=== PATIENT | male | born 1945 | race Caucasian/White ===

== ENCOUNTER 2020-04-09 09:45 | IRF | payer OTHER, SELFPAY ==
--- NOTE | 2020-04-09 10:28 | ADMGEN ---
This patient, Mani Coronel Sr., was admitted to [facility] Room 230-02. Patient/family oriented to hospital policies and general routines including ID bracelet, bed and alarms, visiting hours, pain management, procedures, bathroom and other care routines, personal items, smoking policy, room service/diet, and visiting hours. Valuables list has been completed. Information on how to activate the Rapid Response Team has been discussed. Patient/Family are encouraged to report perceived risks to care and to ask questions if they do not understand what they are told or what they should do.
[2020-04-09 10:44] VITALS: BMI 25.7
[2020-04-09 10:45] VITALS: BP 100/56; PULSE 67; RESP 20; TEMP 36.8; O2SAT 98
--- NOTE | 2020-04-09 11:00 | WPDREHABHP ---
H&P: HPI History of Present Illness Chief complaint: l bka Narrative: Mani Coronel Sr. 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 The patient is a 74-year-old right-handed gentleman who is known to me from his previous hospitalization who has a past medical history of coronary artery disease status post CABG x5 with pacemaker, hypertension, diabetes mellitus type 2 along with peripheral neuropathy, atrial fibrillation on anticoagulation and gastroesophageal reflux disease who underwent a left nbjkx-piw-kuxf amputation on October 19, 2019. He completed inpatient rehab and was discharged home then. His right foot is being followed by Dr. Padron. I he complains of frequent urination 3 to 4 times during the night and every hour during the day. He is a diabetic and his last hemoglobin A1c was 11.3. He was prescribed Flomax at his lost doctor visit to assist with the urinary frequency. His essential hypertension is be treated with Raf inhibitor and is currently controlled but will need to be monitor as a his activity level increases with therapy and added demand and work created by learning to use his prosthetic. The patient is on Xarelto daily for atrial fibrillation and takes low-dose aspirin daily. He has a significant cardiac history and will again noted to be monitored due to the increased demand caused by prosthetic training. His physician reported that the patient is motivated for ambulation and expects the patient to progress with inpatient rehabilitation and prosthetic training. He was ordered a micro compress and knee for increased stability. The patient has peripheral vascular disease with intermittent claudication but the physician does not expect this to affect the walking or use of the prosthesis. The patient has poor vision and is hard of hearing at baseline is a memory deficit that makes inpatient rehabilitation necessity for frequent and daily teaching of the prosthetic use the patient is impulsive and will require cues to not use a start/ stop ambulation pattern. His stump is currently healed but will need to be monitored for skin breakdown given the patient's diabetic status and peripheral vascular disease the patient has not traveled outside the [place] or had contact with someone who is ill that has traveled outside the [place] in the past 21 days. The patient has not traveled to an area within the [place] that is experiencing known transmission of the Coronavirus and has not had close personal contact with anyone that has. The patient does not have a fever. The patient is not experiencing lower respiratory illness symptoms. Therapy was initiated at the acute care facility and the patient transferred to us from Home on April 09, 2020 FALLS OR SURGERIES: The patient has had no major surgeries in the 100 days prior to admission. They had falls in the past year. They had no falls with injury in the past year. PAST MEDICAL HISTORY: atrial fibrillation, coronary artery disease, hyperlipidemia, hypertension, osteoarthritis, degenerative disc disease lumbar region. Dementia of Alzheimer disease, diabetes mellitus with significant peripheral neuropathy and peripheral vascular disease PAST SURGICAL HISTORY: tonsillectomy, cardiac catheterization x3 CABG x5, appendectomy, cholecystectomy, spine surgery, right elbow fracture with hardware, bilateral ankle open reduction and internal fixation, pacemaker placement, left lower extremity angiogram with balloon angioplasty of the left anterior tibial artery. SOCIAL HISTORY: Patient lives with his spouse. Denies use of alcohol or illicit drugs. Patient was chewing tobacco FAMILY HISTORY: probable family history o
[2020-04-09 11:36] LABS: Glucose Point of Care 201 (65-105)
[2020-04-09 14:00] VITALS: BP 100/56; PULSE 67; RESP 20; TEMP 36.8; O2SAT 98
[2020-04-09] MEDS: MORPHINE SULFATE 15 MG TABCR 30 MG PO (17:08)
[2020-04-09] MEDS: BACLOFEN 5 MG TABLET PO (17:09)
[2020-04-09] MEDS: PREGABALIN 50 MG CAPSULE PO (17:09)
[2020-04-09] MEDS: metFORMIN HCL 500 MG TABLET PO (17:09)
[2020-04-09] MEDS: ATORVASTATIN 40 MG TABLET PO (17:10)
[2020-04-09] MEDS: ASPIRIN 81 MG ENTERIC TABLET PO (17:10)
[2020-04-09] MEDS: RIVAROXABAN 15 MG TABLET PO (17:10)
[2020-04-09 20:00] VITALS: PULSE 66; RESP 19; O2SAT 94
[2020-04-09 22:00] VITALS: BP 150/83; PULSE 66; RESP 19; TEMP 36.4; O2SAT 94
[2020-04-09] MEDS: MELATONIN 5 MG TABLET PO (22:20)
[2020-04-09] MEDS: TAMSULOSIN HCL 0.4 MG CAPSULE PO (22:20)
[2020-04-09] MEDS: DONEPEZIL HCL 5 MG TABLET PO (22:20)
[2020-04-10 05:41] LABS: Basophils Absolute Auto 0.1 K/mm3 (0.0-0.1); Basophils Percent Auto 2.2 % (0.2-1.2); Eosinophils Absolute Auto 0.9 K/mm3 (0-0.3); Eosinophils Percent Auto 18.2 % (0-4.4); Hematocrit 30.9 % (42.0-52.0); Hemoglobin 10.2 g/dL (14.0-18.0); Immature Granulocyte Absolute 0.01 K/mm3 (0.00-0.031); Immature Granulocyte Percent A 0.2 % (0-0.5); Lymphocytes Absolute Auto 1.79 K/mm3 (0.9-3.2); Lymphocytes Percent Auto 36.5 % (18.3-44.2); Mean Corpuscular Hemoglobin 29.5 pg (26-34); Mean Corpuscular Volume 89.3 fl (80-100); Mean Platelet Volume 11.5 fl (7.4-10.4); Monocytes Absolute Auto 0.4 K/mm3 (0.1-0.6); Monocytes Percent Auto 7.8 % (2.6-8.5); Neutrophils Absolute Auto 1.7 K/mm3 (1.3-6.7); Neutrophils Percent Auto 35.1 % (45.5-73.1); Platelet Count Result 244 k/mm3 (150-375); Red Blood Count 3.46 M/mm3 (4.6-6.20); Red Cell Distribution Width 13.4 % (11.5-14.5); White Blood Count 4.9 K/mm3 (4.5-10.0)
[2020-04-10 06:00] VITALS: BP 114/72; PULSE 69; RESP 17; TEMP 36.5; O2SAT 100
[2020-04-10] MEDS: MORPHINE SULFATE 15 MG TABCR 30 MG PO ×2 (06:34→17:15)
[2020-04-10 06:56] LABS: Glucose Point of Care 163 (65-105)
[2020-04-10] MEDS: PANTOPRAZOLE 40 MG TABLET PO (09:25)
[2020-04-10] MEDS: NICOTINE (*PBKC) 21 MG PATCH 1 PATCH TRANSDERM (09:25)
[2020-04-10] MEDS: metFORMIN HCL 500 MG TABLET PO ×2 (09:25→17:15)
[2020-04-10] MEDS: MEMANTINE 10 MG TABLET PO (09:26)
[2020-04-10] MEDS: TAMSULOSIN HCL 0.4 MG CAPSULE PO ×2 (09:26→20:09)
[2020-04-10] MEDS: PREGABALIN 50 MG CAPSULE PO ×2 (09:26→17:15)
--- NOTE | 2020-04-10 09:38 | PC.NURSE ---
pt refused to have BMP redrawn this morning. Pt states he only will allow one stick and no more. He states last time someone stuck him 7 times and did not get blood and he won't do that again. updated.
--- NOTE | 2020-04-10 10:25 | RPD ---
INDIVIDUALIZED PLAN OF CARE FOR Mani Coronel . Brief Synthesis of Pre-Admission Screen, Post-Admission Evaluation and Therapy Evaluations: The patient presents to rehab with ischemic gangrene left lower extremity. 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 The patient requires physician services for medical oversight, coordination of care, and pain management. His medical status is subject to change given a sudden dramatic change in activity level. The patient requires nursing services for infection protection, medication management, skin integrity management and care, and patient education. Deficits include:ADLs, Balance, Endurance, Family Training/Education, Mobility, Pain Management, Safety, Strength, Transfers [employer] Developer/Case Management for: Discharge Planning and Patient/Family Counseling Physical Therapy: 5 days per week for 90 minutes. Treatments may include: Therapeutic Exercise, Gait Training, Neuromuscular Re-education, Transfer Training, Community Reintegration, Bed Mobility, Patient/Family Education, Wheelchair Mobility Group Therapy/Concurrent Therapy Rationales: -Improve attention span during functional activities in a distracted environment. -Enhance problem solving and/or adequate judgment skills during functional activities in a distracted environment. -Promote increased safety awareness in a distracted environment to reduce fall risk with functional tasks, transfers, and ambulation to allow a more safe, self-sufficient return to the home environment. -Improve dynamic balance skills to promote safety and independence with functional activities in a distracted environment for maximum gain. Occupational Therapy: 5 days per week for 90 minutes. Treatments may include: Therapeutic Exercise, Therapeutic Activity, Cognitive Training, Self-Care Transfer Training, Community Reintegration, Home Management, Patient/Family Education, Wheelchair Mobility Training, Energy Conservation Training Group Therapy/Concurrent Therapy Rationales: -Allow therapist to observe and teach generalization and carry-over of skills learned in individual therapy. -Enhance problem solving and sequencing skills during therapeutic activities in a distracted environment. -Promote increased safety awareness in a realistic setting to reduce fall risk with functional tasks due to visual and verbal distractions. -Increase functional level with ADLs, ADL transfers and use of adaptive equipment through therapeutic activities with others while promoting safety to allow a more safe, self-sufficient return home. Medical Prognosis: Good Anticipated Length of Stay: 5 days Rehab Goals: Eating Goal: 06-Independent Oral Hygiene Goal: 06-Independent Toileting Hygiene Goal: 06-Independent Shower/Bathe Self Goal: 04-Supervision or Touching Assistance Upper Body Dressing Goal: 06-Independent Lower Body Dressing Goal: 04-Supervision or Touching Assistance Putting On/Taking Off Footwear Goal: 06-Independent Rolling Left and Right Goal: 06-Independent Sit to Lying Goal: 06-Independent Lying to Sitting on Side of Bed Goal: 06-Independent Sit to Stand Goal: 06-Independent Chair/Ojj-uy-Ichie Transfer Goal: 06-Independent Toilet Transfer Goal: 06-Independent Car Transfer Goal: 04-Supervision or Touching Assistance Walk 10' Goal: 04-Supervision or Touching Assistance Walk 50' with Two Turns Goal: 04-Supervision or Touching Assistance Walk 150' Goal: 04-Supervision or Touching Assistance Walk 10' on Uneven Surface Goal: 04-Supervision or Touching Assistance 1 Step (Curb) Goal: 03-Partial/Moderate Assistance 4 Steps Goal: 03-Partial/Moderate Assistance
[2020-04-10 14:00] VITALS: BP 120/64; PULSE 61; RESP 18; TEMP 36.5; O2SAT 96
[2020-04-10 16:45] LABS: Glucose Point of Care 150 (65-105)
[2020-04-10] MEDS: RIVAROXABAN 15 MG TABLET PO (17:15)
[2020-04-10] MEDS: ATORVASTATIN 40 MG TABLET PO (17:15)
[2020-04-10] MEDS: ASPIRIN 81 MG ENTERIC TABLET PO (17:15)
[2020-04-10] MEDS: BACLOFEN 5 MG TABLET PO (17:16)
[2020-04-10 20:00] VITALS: PULSE 65; RESP 18; O2SAT 97
[2020-04-10] MEDS: MELATONIN 5 MG TABLET PO (20:09)
[2020-04-10] MEDS: DONEPEZIL HCL 5 MG TABLET PO (20:09)
[2020-04-10 20:21] VITALS: BP 91/49; PULSE 97; RESP 18; TEMP 36.6; O2SAT 97
[2020-04-10 22:00] VITALS: BP 91/49; PULSE 65; RESP 18; TEMP 36.6; O2SAT 97
[2020-04-11 06:00] VITALS: BP 106/54; PULSE 64; RESP 16; TEMP 36.7; O2SAT 100
[2020-04-11 06:55] LABS: Glucose Point of Care 171 (65-105)
[2020-04-11] MEDS: MORPHINE SULFATE 15 MG TABCR 30 MG PO ×2 (06:58→17:31)
--- NOTE | 2020-04-11 08:54 | PCPTNOTE ---
Mani Coronel Sr. was evaluated for a wheeled walker on 04/11/2020 by this physical therapist. The wheeled walker will resolve patient's mobility limitations and will be used for ADL's within the home. The patient can safely use the wheeled walker. ?The wheeled walker will resolve the patient?s mobility deficits, including transfers, gait in home and ADL's. Odalis Elizabeth PT
[2020-04-11] MEDS: NICOTINE (*PBKC) 21 MG PATCH 1 PATCH TRANSDERM (09:34)
[2020-04-11] MEDS: MEMANTINE 10 MG TABLET PO (09:35)
[2020-04-11] MEDS: metFORMIN HCL 500 MG TABLET PO ×2 (09:35→17:31)
[2020-04-11] MEDS: PANTOPRAZOLE 40 MG TABLET PO (09:35)
[2020-04-11] MEDS: PREGABALIN 50 MG CAPSULE PO ×2 (09:35→17:31)
[2020-04-11] MEDS: TAMSULOSIN HCL 0.4 MG CAPSULE PO ×2 (09:37→20:56)
[2020-04-11] MEDS: TOBRAMYCIN 0.3% OPHTH SOLN 5 ML 1 DROP EACH EYE ×3 (12:22→20:51)
[2020-04-11 13:08] VITALS: BMI 25.7
[2020-04-11] MEDS: BACLOFEN 5 MG TABLET PO ×2 (13:40→20:56)
[2020-04-11 14:00] VITALS: BP 101/60; PULSE 66; RESP 18; TEMP 36.8; O2SAT 95
--- NOTE | 2020-04-11 14:34 | WPDNEURORHBP ---
Subjective Date/time seen: 04/11/20 14:34 Interval history: this 74-year-old gentleman is here for the prosthetic training along with the other medical conditions his complaining of back pain which she for which he was seeing the Pain Management in the past however quite reluctant to increase his morphine which is taking at this 0.30 every 12 hours he denies any chest pain shortness of breath fever chills sore throat he has had chronic issues with his eyes related diabetes mellitus and wanted some eyedrops for the same including the drops for the dry eye which I have initiated Review of Systems Review of Systems: All systems reviewed & are unremarkable except as noted in HPI and below Functional Status Ambulation Ability Ability to Ambulate 10 Feet: Standby Assistance Ability to Ambulate 50 Feet With 2 Turns: Standby Assistance Ability to Ambulate 150 Feet: Standby Assistance Ambulation Assistive Devices: Walker, Wheeled Transfers Ability Ability to Transfer In/Out of Chair: Standby Assistance Exam Const: General: comfortable and no acute distress HENMT: General nose exam: Normal nares present Mouth: Yes moist mucous membranes Eyes: Other: a dry eyes and blepharitis along with decreased vision related to the diabetes me Neck: Neck: supple and no JVD Resp: Effort & Inspection: normal respiratory effort Auscultation: clear to auscultation bilaterally Cardio: Rate: regular rate Rhythm: regular rhythm GI: GI Palp: Yes Soft to palpation Auscultation: normal bowel sounds Skin: General skin exam: normal color and no rashes or lesions noted Neuro: Other: patient is awake and alert wound time place and person with cognitive and memory deficit is stable along with the evidence of peripheral neuropathy and probably peripheral vascular disease also Extrem: Other: the stump from the BKA is stable and the prosthesis is well fitting Psych: Other: mild dementia Objective Data Vital Signs Vital Signs: Vital Signs - 24 hr 04/10/20 20:00 04/10/20 20:21 04/10/20 22:00 Temperature 36.6 C 36.6 C Pulse Rate 65 97 65 Respiratory Rate 18 18 18 Blood Pressure 91/49 L 91/49 L Pulse Oximetry 97 97 97 04/11/20 06:00 Temperature 36.7 C Pulse Rate 64 Respiratory Rate 16 Blood Pressure 106/54 L Pulse Oximetry 100 Intake/Output Intake/Output: Intake & Output 04/08/20 04/09/20 04/10/2004/11/20 23:59 23:59 23:59 23:59 Intake Total 480 720 240 Balance 480 720 240 Meds/Results Medications: Active Medications Generic Name Dose Route Start Last Admin Trade Name Freq PRN Reason Stop Dose Admin Aspirin 81 mg 04/09/20 18:00 04/10/20 17:15 Aspirin Ec PO 81 mg QPM YRIS Administration Atorvastatin Calcium 40 mg 04/09/20 18:00 04/10/20 17:15 Lipitor PO 40 mg QPM YRIS Administration Baclofen 5 mg 04/11/20 14:00 04/11/20 13:40 Lioresal Po PO 5 mg Q8HR YRIS Administration Cyclosporine 1 drop 04/11/20 09:00 04/11/20 12:22 Restasis EACH EYE 1 drop Q12HR YRIS Administration Diphenhydramine HCl 25 mg 04/09/20 12:09 04/10/20 20:21 Benadryl Cap PO 25 mg Q6H PRN Administration Itching Donepezil HCl 5 mg 04/09/20 21:00 04/10/20 20:09 Aricept PO 5 mg HS YRIS Administration Melatonin 5 mg 04/09/20 21:00 04/10/20 20:09 Melatonin PO 5 mg HS YRIS Administration Memantine 10 mg 04/10/20 09:00 04/11/20 09:35 Namenda PO 10 mg QAM YRIS Administration Metformin HCl 500 mg 04/09/20 17:00 04/11/20 09:35 Glucophage PO 500 mg BID YRIS Administration Morphine Sulfate 30 mg 04/09/20 18:00 04/11/20 06:58 Ms Contin PO 30 mg Q12H YRIS Administration Nicotine 1 patch 04/10/20 09:00 04/11/20 09:34 Nicoderm Cq 21 Mg TRANSDERM 1 patch QAM YRIS Administration Nitroglycerin 0.4 mg 04/09/20 12:09 Nitrostat Subl 0.4 Mg (1/150) SUBLINGUAL Q5MIN PRN Chest Pain Pantoprazole Sodium 40 mg 04/10/20 09:00
[2020-04-11 16:52] LABS: Glucose Point of Care 125 (65-105)
[2020-04-11] MEDS: ASPIRIN 81 MG ENTERIC TABLET PO (17:31)
[2020-04-11] MEDS: RIVAROXABAN 15 MG TABLET PO (17:31)
[2020-04-11] MEDS: ATORVASTATIN 40 MG TABLET PO (17:31)
[2020-04-11 20:00] VITALS: PULSE 67; RESP 18; O2SAT 99
[2020-04-11] MEDS: DONEPEZIL HCL 5 MG TABLET PO (20:56)
[2020-04-11] MEDS: MELATONIN 5 MG TABLET PO (20:56)
[2020-04-11 22:00] VITALS: BP 132/66; PULSE 67; RESP 18; TEMP 36.3; O2SAT 99
[2020-04-12] MEDS: TOBRAMYCIN 0.3% OPHTH SOLN 5 ML 1 DROP EACH EYE ×5 (05:29→21:09)
[2020-04-12] MEDS: BACLOFEN 5 MG TABLET PO ×3 (05:29→21:09)
[2020-04-12] MEDS: MORPHINE SULFATE 15 MG TABCR 30 MG PO ×2 (05:31→17:24)
[2020-04-12 06:00] VITALS: BP 109/56; PULSE 73; RESP 18; TEMP 36.5; O2SAT 98
[2020-04-12 07:34] LABS: Glucose Point of Care 140 (65-105)
[2020-04-12] MEDS: TAMSULOSIN HCL 0.4 MG CAPSULE PO ×2 (09:22→21:09)
[2020-04-12] MEDS: NICOTINE (*PBKC) 21 MG PATCH 1 PATCH TRANSDERM (09:22)
[2020-04-12] MEDS: metFORMIN HCL 500 MG TABLET PO ×2 (09:22→17:25)
[2020-04-12] MEDS: PREGABALIN 50 MG CAPSULE PO ×2 (09:22→17:25)
[2020-04-12] MEDS: PANTOPRAZOLE 40 MG TABLET PO (09:22)
[2020-04-12] MEDS: MEMANTINE 10 MG TABLET PO (09:22)
[2020-04-12 14:00] VITALS: BP 100/50; PULSE 77; RESP 20; TEMP 36.6; O2SAT 96
[2020-04-12] MEDS: ATORVASTATIN 40 MG TABLET PO (17:25)
[2020-04-12] MEDS: ASPIRIN 81 MG ENTERIC TABLET PO (17:25)
--- NOTE | 2020-04-12 17:48 | WPDNEURORHBP ---
Subjective Date/time seen: 04/12/20 17:48 Interval history: this 74-year-old the diabetic male is here for the prosthetic training after having had a left rkjcu-dyu-gsgb amputation last night he was complaining of some shortness of breath related to underlying emphysema but today's perfectly fine denies any chest pain shortness of breath fever chills or sore throat periodically has used in the past some inhaler so I have asked the nurses to go ahead and put him on albuterol inhaler as needed basis overall he is improving and doing very well in the prosthetic training Review of Systems Review of Systems: All systems reviewed & are unremarkable except as noted in HPI and below Functional Status Ambulation Ability Ability to Ambulate 10 Feet: Contact Guard Ability to Ambulate 50 Feet With 2 Turns: Contact Guard Ability to Ambulate 150 Feet: Contact Guard Ambulation Assistive Devices: Walker, Wheeled Transfers Ability Ability to Transfer In/Out of Chair: Moderate Assistance X 1 Exam Const: General: comfortable and no acute distress HENMT: General nose exam: Normal nares present Mouth: Yes moist mucous membranes Eyes: Other: evidence of chronic blepharitis and also evidence of diabetic retinopathy with decreased vision which is stable as before Neck: Neck: supple and no JVD Resp: Effort & Inspection: normal respiratory effort Auscultation: clear to auscultation bilaterally Cardio: Rate: regular rate GI: GI Palp: Yes Soft to palpation Auscultation: normal bowel sounds Skin: General skin exam: normal color and no rashes or lesions noted Neuro: Other: the patient is awake and alert oriented x3 does have underlying cognitive dysfunction evidence of peripheral neuropathy able to engage in therapy quite well Extrem: Other: the stump from the left BKA is clean and the prosthesis is working fairly well Psych: Other: evidence of mild cognitive deficit stable Objective Data Vital Signs Vital Signs: Vital Signs - 24 hr 04/11/20 20:00 04/11/20 22:00 04/12/20 06:00 Temperature 36.3 C L 36.5 C Pulse Rate 67 67 73 Respiratory Rate 18 18 18 Blood Pressure 132/66 109/56 L Pulse Oximetry 99 99 98 04/12/20 14:00 Temperature 36.6 C Pulse Rate 77 Respiratory Rate 20 Blood Pressure 100/50 L Pulse Oximetry 96 Intake/Output Intake/Output: Intake & Output 04/09/20 04/10/20 04/11/2004/12/20 23:59 23:59 23:59 23:59 Intake Total 480 720 840 960 Balance 480 720 840 960 Meds/Results Medications: Active Medications Generic Name Dose Route Start Last Admin Trade Name Freq PRN Reason Stop Dose Admin Albuterol 2 puff 04/12/20 14:25 Proventil Hfa INHALATION QIDRT PRN Shortness Of Breath Aspirin 81 mg 04/09/20 18:00 04/12/20 17:25 Aspirin Ec PO 81 mg QPM YRIS Administration Atorvastatin Calcium 40 mg 04/09/20 18:00 04/12/20 17:25 Lipitor PO 40 mg QPM YRIS Administration Baclofen 5 mg 04/11/20 14:00 04/12/20 13:26 Lioresal Po PO 5 mg Q8HR YRIS Administration Cyclosporine 1 drop 04/11/20 09:00 04/12/20 09:21 Restasis EACH EYE 1 drop Q12HR YRIS Administration Diphenhydramine HCl 25 mg 04/09/20 12:09 04/11/20 21:03 Benadryl Cap PO 25 mg Q6H PRN Administration Itching Donepezil HCl 5 mg 04/09/20 21:00 04/11/20 20:56 Aricept PO 5 mg HS YRIS Administration Melatonin 5 mg 04/09/20 21:00 04/11/20 20:56 Melatonin PO 5 mg HS YRIS Administration Memantine 10 mg 04/10/20 09:00 04/12/20 09:22 Namenda PO 10 mg QAM YRIS Administration Metformin HCl 500 mg 04/09/20 17:00 04/12/20 17:25 Glucophage PO 500 mg BID YRIS Administration Morphine Sulfate 30 mg 04/09/20 18:00 04/12/20 17:24 Ms Contin PO 30 mg Q12H YRIS Administration Nicotine 1 patch 04/10/20 09:00 04/12/20 09:22 Nicoderm Cq 21 Mg TRANSDERM 1 patch QAM YRIS Administration Nitroglycerin 0.4 mg 04/09/20 12:09 Nitrost
--- NOTE | 2020-04-12 18:29 | PC.NURSE ---
pt refused 5 pm accucheck stating his fingers were sore and he didn't want stuck. updated.
[2020-04-12] MEDS: DONEPEZIL HCL 5 MG TABLET PO (21:09)
[2020-04-12] MEDS: MELATONIN 5 MG TABLET PO (21:09)
[2020-04-12] MEDS: RIVAROXABAN 15 MG TABLET PO (21:09)
[2020-04-12 22:00] VITALS: BP 86/45; PULSE 101; RESP 18; TEMP 36.7; O2SAT 95
[2020-04-13] MEDS: TOBRAMYCIN 0.3% OPHTH SOLN 5 ML 1 DROP EACH EYE ×5 (05:44→21:30)
[2020-04-13] MEDS: MORPHINE SULFATE 15 MG TABCR 30 MG PO ×2 (05:44→17:35)
[2020-04-13] MEDS: BACLOFEN 5 MG TABLET PO ×3 (05:45→21:30)
[2020-04-13 06:00] VITALS: BP 110/60; PULSE 68; RESP 18; TEMP 36.5; O2SAT 96
[2020-04-13 07:02] LABS: Glucose Point of Care 154 (65-105)
[2020-04-13] MEDS: MEMANTINE 10 MG TABLET PO (10:25)
[2020-04-13] MEDS: metFORMIN HCL 500 MG TABLET PO ×2 (10:25→17:34)
[2020-04-13] MEDS: NICOTINE (*PBKC) 21 MG PATCH 1 PATCH TRANSDERM (10:26)
[2020-04-13] MEDS: PANTOPRAZOLE 40 MG TABLET PO (10:26)
[2020-04-13] MEDS: TAMSULOSIN HCL 0.4 MG CAPSULE PO ×2 (10:27→21:30)
[2020-04-13] MEDS: PREGABALIN 50 MG CAPSULE PO ×2 (10:28→17:34)
[2020-04-13 14:00] VITALS: BP 96/45; PULSE 67; RESP 20; TEMP 35.9; O2SAT 96
--- NOTE | 2020-04-13 16:13 | WPDNEURORHBP ---
Subjective Date/time seen: 04/13/20 16:13 Interval history: this 74-year-old gentleman diabetic has finished the training for the prosthesis and will be going home tomorrow he does not have any new symptoms he says he is most of the medication except he wishes to have the morphine the baclofen the eyedrops and if anything I have started him on during this hospitalization I will look into it he denies any headache nausea vomiting chest pain shortness of breath fever chills sore throat Review of Systems Review of Systems: All systems reviewed & are unremarkable except as noted in HPI and below Functional Status Ambulation Ability Ability to Ambulate 10 Feet: Standby Assistance Ability to Ambulate 50 Feet With 2 Turns: Standby Assistance Ability to Ambulate 150 Feet: Standby Assistance Ambulation Assistive Devices: Walker, Wheeled Transfers Ability Ability to Transfer In/Out of Chair: Moderate Assistance X 1 Exam Const: General: comfortable and no acute distress HENMT: General nose exam: Normal nares present Mouth: Yes moist mucous membranes Eyes: General: appearance normal, both eyes and all related structures Other: decreased visual acuity bilaterally related to diabetic retinopathy Neck: Neck: supple and no JVD Resp: Effort & Inspection: normal respiratory effort Auscultation: clear to auscultation bilaterally Cardio: Rate: regular rate Rhythm: regular rhythm GI: GI Palp: Yes Soft to palpation Auscultation: normal bowel sounds Skin: General skin exam: normal color and no rashes or lesions noted Neuro: Other: the mild dementia is remains stable speech is fluent decreased visual acuity remains stable peripheral neuropathy is stable he is able to uses prosthesis quite well and will repeated to discharged tomorrow Extrem: Other: the prosthesis seems to be fitting well and the stump from the left lfnco-tms-abjj amputation is healthy Psych: Other: mild dementia Objective Data Vital Signs Vital Signs: Vital Signs - 24 hr 04/12/20 22:00 04/13/20 06:00 04/13/20 14:00 Temperature 36.7 C 36.5 C 35.9 C L Pulse Rate 101 H 68 67 Respiratory Rate 18 18 20 Blood Pressure 86/45 L 110/60 96/45 L Pulse Oximetry 95 96 96 Intake/Output Intake/Output: Intake & Output 04/10/20 04/11/20 04/12/20 04/13/20 23:59 23:59 23:59 23:59 Intake Total 121 677 4654 960 Balance 271 001 5423 960 Meds/Results Medications: Active Medications Generic Name Dose Route Start Last Admin Trade Name Freq PRN Reason Stop Dose Admin Albuterol 2 puff 04/12/20 14:25 Proventil Hfa INHALATION QIDRT PRN Shortness Of Breath Aspirin 81 mg 04/09/20 18:00 04/12/20 17:25 Aspirin Ec PO 81 mg QPM YRIS Administration Atorvastatin Calcium 40 mg 04/09/20 18:00 04/12/20 17:25 Lipitor PO 40 mg QPM YRIS Administration Baclofen 5 mg 04/11/20 14:00 04/13/20 13:55 Lioresal Po PO 5 mg Q8HR YRIS Administration Cyclosporine 1 drop 04/11/20 09:00 04/13/20 10:25 Restasis EACH EYE 1 drop Q12HR YRIS Administration Diphenhydramine HCl 25 mg 04/09/20 12:09 04/11/20 21:03 Benadryl Cap PO 25 mg Q6H PRN Administration Itching Donepezil HCl 5 mg 04/09/20 21:00 04/12/20 21:09 Aricept PO 5 mg HS RYIS Administration Melatonin 5 mg 04/09/20 21:00 04/12/20 21:09 Melatonin PO 5 mg HS YRIS Administration Memantine 10 mg 04/10/20 09:00 04/13/20 10:25 Namenda PO 10 mg QAM YRIS Administration Metformin HCl 500 mg 04/09/20 17:00 04/13/20 10:25 Glucophage PO 500 mg BID YRIS Administration Morphine Sulfate 30 mg 04/09/20 18:00 04/13/20 05:44 Ms Contin PO 30 mg Q12H YRIS Administration Nicotine 1 patch 04/10/20 09:00 04/13/20 10:26 Nicoderm Cq 21 Mg TRANSDERM 1 patch QAM YRIS Administration Nitroglycerin 0.4 mg 04/09/20 12:09 Nitrostat Subl 0.4 Mg (1/150) SUBLINGUAL Q5MIN PRN Chest Pain Pantoprazole Sodium 4
[2020-04-13 17:31] LABS: Glucose Point of Care 176 (65-105)
[2020-04-13] MEDS: ASPIRIN 81 MG ENTERIC TABLET PO (17:34)
[2020-04-13] MEDS: ATORVASTATIN 40 MG TABLET PO (17:34)
[2020-04-13] MEDS: RIVAROXABAN 15 MG TABLET PO (17:35)
[2020-04-13] MEDS: ALBUTEROL SULFATE (*SP) AEROSOL 1 PUFF 2 PUFF INHALATION (19:46)
[2020-04-13] MEDS: DONEPEZIL HCL 5 MG TABLET PO (21:30)
[2020-04-13] MEDS: MELATONIN 5 MG TABLET PO (21:30)
[2020-04-13 22:00] VITALS: BP 89/41; PULSE 60; RESP 16; TEMP 36.3; O2SAT 95
[2020-04-14 06:00] VITALS: BP 97/54; PULSE 60; RESP 18; TEMP 36.1; O2SAT 94
[2020-04-14] MEDS: MORPHINE SULFATE 15 MG TABCR 30 MG PO (06:13)
[2020-04-14] MEDS: TOBRAMYCIN 0.3% OPHTH SOLN 5 ML 1 DROP EACH EYE ×2 (06:13→09:17)
[2020-04-14] MEDS: BACLOFEN 5 MG TABLET PO (06:13)
[2020-04-14 06:29] LABS: Glucose Point of Care 123 (65-105)
[2020-04-14] MEDS: NICOTINE (*PBKC) 21 MG PATCH 1 PATCH TRANSDERM (09:16)
[2020-04-14] MEDS: metFORMIN HCL 500 MG TABLET PO (09:17)
[2020-04-14] MEDS: MEMANTINE 10 MG TABLET PO (09:17)
[2020-04-14] MEDS: PREGABALIN 50 MG CAPSULE PO (09:17)
[2020-04-14] MEDS: TAMSULOSIN HCL 0.4 MG CAPSULE PO (09:17)
[2020-04-14] MEDS: PANTOPRAZOLE 40 MG TABLET PO (09:17)
--- NOTE | 2020-04-16 15:17 | PM.DS ---
DS: Admitting Diagnosis Admitting Diagnosis Admitting Diagnosis: Type 2 diabetes mellitus with diabetic peripheral angiopathy with gangrene DS: Discharge Diagnosis Discharge Diagnosis (1) Encounter for prosthetic gait training: Code(s): Z47.89 - Encounter for other orthopedic aftercare Status: Acute (2) CKD (chronic kidney disease) stage 3, GFR 30-59 ml/min: Code(s): N18.3 - Chronic kidney disease, stage 3 (moderate) Status: Acute (3) Dementia: Code(s): F03.90 - Unspecified dementia without behavioral disturbance Status: Acute (4) Diabetic nephropathy: Code(s): E11.21 - Type 2 diabetes mellitus with diabetic nephropathy Status: Acute (5) Diabetic retinopathy: Code(s): E11.319 - Type 2 diabetes mellitus with unspecified diabetic retinopathy without macular edema Status: Acute (6) Phantom pain: Code(s): G54.6 - Phantom limb syndrome with pain Status: Acute (7) Below-knee amputation of left lower extremity: Code(s): S88.112A - Complete traumatic amputation at level between knee and ankle, left lower leg, initial encounter Status: Acute (8) Diabetes mellitus: Code(s): E11.9 - Type 2 diabetes mellitus without complications Status: Acute (9) Peripheral vascular disease: Code(s): I73.9 - Peripheral vascular disease, unspecified Status: Acute (10) Hypertension: Code(s): I10 - Essential (primary) hypertension Status: Chronic (11) S/P CABG x 5: Code(s): Z95.1 - Presence of aortocoronary bypass graft Status: Acute (12) Atrial fibrillation: Code(s): I48.91 - Unspecified atrial fibrillation Status: Acute (13) Ischemia of left BKA site: Code(s): T87.89 - Other complications of amputation stump; I99.8 - Other disorder of circulatory system Status: Acute DS: Summary Hospital Course Reason for hospitalization: this patient with the left [id number] amputation was admitted for the prosthetic training with the above other medical comorbidities he did receive the therapies the medical management of his underlying condition and was to be discharged with home with home health to follow Hospital Course: the hospital course improved his functional independent measures to following Eating independent oral hygiene setup, toileting setup, bathing supervision, upper body dressing independent, lower body dressing supervision, foot where supervision, rolling in bed independent sitting to lying independent lying to sitting independently sit to stand supervision chair transfers supervision toilet transfer supervision car transfer supervision walking 10 feet supervision walking 50 feet 2 turns supervision walking 150 feet supervision walking 10 feet uneven surfaces supervision carb are step partial assistance 4 steps partial assistance 12 steps partial patient was unable to picking up objects supervision wheelchair 50 feet independent and wheelchair and 50 feet independent Status at Discharge Cognitive/behavioral status at discharge: underlying dementia stable Time Spent with Patient Time attestation: Total time spent providing and/or coordinating discharge services: Exam Const: General: comfortable and no acute distress HENMT: General nose exam: Normal nares present Mouth: Yes dry mucous membranes Eyes: Other: evidence of a diabetic retinopathy Neck: Neck: supple and no JVD Resp: Effort & Inspection: normal respiratory effort Auscultation: clear to auscultation bilaterally Cardio: Rate: regular rate Rhythm: regular rhythm GI: GI Palp: Yes Soft to palpation Auscultation: normal bowel sounds Neuro: Other: patient's neurological and physical status improved and he was doing fairly well using the prosthesis his peripheral neuropathy and peripheral vascular disease remained stable Extrem: Other: the left [id number] amputation site stump is clean Psych: Appearance: kimmie
== END 2020-04-14 11:30 | disposition home health service (06) | DRG 560 ==
PROVIDERS: Admitting Provider Psychiatry & Neurology Neurology; PCP Family Medicine; Visit Provider Psychiatry & Neurology Neurology
DX: Z47.81 Encounter for orthopedic aftercare following surgical amputation (principal); I13.0 Hypertensive heart and chronic kidney disease with heart failure and stage 1 through stage 4 chronic kidney disease, or unspecified chronic kidney disease; I50.30 Unspecified diastolic (congestive) heart failure; E11.51 Type 2 diabetes mellitus with diabetic peripheral angiopathy without gangrene; E11.42 Type 2 diabetes mellitus with diabetic polyneuropathy; E11.319 Type 2 diabetes mellitus with unspecified diabetic retinopathy without macular edema; E11.21 Type 2 diabetes mellitus with diabetic nephropathy; E11.22 Type 2 diabetes mellitus with diabetic chronic kidney disease; E78.5 Hyperlipidemia, unspecified; F02.80 Dementia in other diseases classified elsewhere, unspecified severity, without behavioral disturbance, psychotic disturbance, mood disturbance, and anxiety; H91.90 Unspecified hearing loss, unspecified ear; I12.9 Hypertensive chronic kidney disease with stage 1 through stage 4 chronic kidney disease, or unspecified chronic kidney disease; I25.10 Atherosclerotic heart disease of native coronary artery without angina pectoris; I48.91 Unspecified atrial fibrillation; K21.9 Gastro-esophageal reflux disease without esophagitis; N18.3 Chronic kidney disease, stage 3 (moderate); R35.0 Frequency of micturition; T87.89 Other complications of amputation stump; Z98.890 Other specified postprocedural states; Z95.0 Presence of cardiac pacemaker; Z95.1 Presence of aortocoronary bypass graft; Z79.01 Long term (current) use of anticoagulants; Z79.82 Long term (current) use of aspirin; Z79.84 Long term (current) use of oral hypoglycemic drugs; Z89.512 Acquired absence of left leg below knee
CPT/HCPCS: 36415; 85025; 94640; 97110; 97116; 97161; 97165; 97530; 97535; 97761; A9270

== ENCOUNTER 2020-08-18 12:13 | Outpatient (CLI) | payer OTHER, SELFPAY ==
[2020-08-18 13:25] LABS: Basophils Absolute Auto 0.2 K/mm3 (0.0-0.1); Basophils Percent Auto 2.4 % (0.2-1.2); Eosinophils Absolute Auto 0.4 K/mm3 (0-0.3); Eosinophils Percent Auto 5.5 % (0-4.4); Hematocrit 31.5 % (42.0-52.0); Immature Granulocyte Absolute 0.01 K/mm3 (0.00-0.031); Immature Granulocyte Percent A 0.2 % (0-0.5); Lymphocytes Absolute Auto 1.68 K/mm3 (0.9-3.2); Lymphocytes Percent Auto 26.3 % (18.3-44.2); Mean Corpuscular HGB Conc 31.7 g/dl (32-36); Mean Corpuscular Hemoglobin 29.5 pg (26-34); Mean Corpuscular Volume 92.9 fl (80-100); Mean Platelet Volume 11.6 fl (7.4-10.4); Monocytes Absolute Auto 0.5 K/mm3 (0.1-0.6); Monocytes Percent Auto 7.7 % (2.6-8.5); Neutrophils Absolute Auto 3.7 K/mm3 (1.3-6.7); Neutrophils Percent Auto 57.9 % (45.5-73.1); Platelet Count Result 251 k/mm3 (150-375); Red Blood Count 3.39 M/mm3 (4.6-6.20); Red Cell Distribution Width 14.4 % (11.5-14.5); White Blood Count 6.4 K/mm3 (4.5-10.0)
[2020-08-18 13:32] LABS: Hemoglobin A1C 8.2 % (<5.7)
[2020-08-18 13:37] LABS: Alanine Aminotransferase 16 U/L (4-50); Albumin Level 3.6 g/dL (3.5-5.1); Alkaline Phosphatase 115 U/L (38-126); Anion Gap 8 mmol/L (8-16); Aspartate Amino Transferase 25 U/L (17-59); Bilirubin,Total 0.7 mg/dL (0.2-1.3); Blood Urea Nitrogen 22 mg/dL (9-20); Calcium 8.9 mg/dL (8.4-10.2); Carbon Dioxide 26 mmol/L (22-30); Chloride 104 mmol/L (98-107); Cholesterol 124 mg/dL (0-200); Estimated Glomerular Filt Rate 35; Glucose 105 mg/dL (75-110); HDL Direct 52 mg/dL; Potassium 4.3 mmol/L (3.4-5.0); Sodium 138 mmol/L (137-145); Triglycerides 93 mg/dL (<150)
[2020-08-18 13:48] LABS: LDL Cholesterol Direct 49 mg/dL
== END 2020-08-18 12:14 | disposition home or self-care (01) ==
LOC: ANHLAB 12:20
PROVIDERS: PCP Family Medicine; Visit Provider Family Medicine
DX: E11.59 Type 2 diabetes mellitus with other circulatory complications (principal); I10 Essential (primary) hypertension
CPT/HCPCS: 36415; 80053; 80061; 83036; 85025

== ENCOUNTER 2020-08-18 15:04 | Observation (INO) | payer OTHER, SELFPAY ==
[2020-08-18] VITALS (43 sets, daily range): BP systolic 71–126; BP diastolic 7–106; PULSE 63–94; RESP 10–24; TEMP 36.2–37; O2SAT 90–98; BMI 24.5
--- NOTE | ~2020-08-18 | CT_ITS ---
EXAMINATION: CT brain wo con INDICATION: Altered mental status COMPARISON: 11/03/2019 TECHNIQUE: Standard unenhanced head CT. The dose-length product (DLP) was 605.33 mGy-cm. The mA was a djusted according to patient size. Iterative reconstruction technique was employed. FINDINGS: There is no acute intraparenchymal hemorrhage. No evidence of mass lesion. No evidence of a cute infarction. An old right frontal lobe infarct is noted. There is moderate periventricular and hankins bcortical hypodensity probably related to small vessel ischemic disease. There is moderate prominence of the sulci and ventricles related to cerebral atrophy. Intracranial calcified cerebral atheroscler osis is noted. There are no extra-axial collections. There is no mass effect or midline shift. The or bits and soft tissues are unremarkable. There is mild mucosal thickening of the paranasal sinuses. T here is a left mastoid effusion. IMPRESSION: 1. No acute intracranial abnormality. 2. Age related findings. Reviewed, dictated and finalized at location A.
--- NOTE | ~2020-08-18 | US_ITS ---
EXAMINATION: US carotid duplex BI DATE: 08/19/2020 08:02 INDICATION: Right frontal lobe infarct. TECHNIQUE: Grayscale, color Doppler, and pulsed Doppler images of the cervical carotid arteries were obtained. The degree of vessel stenosis is placed in one of the following categories: normal, <50%, 5 0-69%, >=70% but less than near-occlusion, near-occlusion, or total occlusion. Note that percent sten osis relative to normal distal artery lumen diameter is indirectly measured from velocity measurement s as described by Freddie, et al. Radiology 2003; 229:340-346. COMPARISON: None. FINDINGS: There is an arrhythmia. RIGHT: The right common carotid artery (CCA) peak systolic velocity (PSV) is 56 cm/s. The right internal car otid artery (ICA) PSV is 52 cm/s. The right ICA end-diastolic velocity (EDV) is 12 cm/s. The right IC A/CCA PSV ratio is 0.9. Grayscale and color Doppler images yield an estimate of <50% diameter reducti on from plaque in the ICA. There is antegrade flow in the right vertebral artery. LEFT: The left CCA PSV is 79 cm/s. The left ICA PSV is 53 cm/s. The left ICA EDV is 12 cm/s. The left ICA/C CA PSV ratio is 0.7. Grayscale and color Doppler images yield an estimate of <50% diameter reduction from plaque in the ICA. There is antegrade flow in the left vertebral artery. IMPRESSION: 1. <50% stenosis in the right internal carotid artery. 2. <50% stenosis in the left internal carotid artery. 3. Arrhythmia. Reviewed, dictated and finalized at location A.
--- NOTE | ~2020-08-18 | XR_ITS ---
EXAMINATION: XR chest 1V portable INDICATION: Transient alteration of awareness TECHNIQUE: Portable AP chest at 1919 hours COMPARISON: 12/05/2019 FINDINGS: The lungs are free of acute opacities. There is no pleural effusion or pneumothorax. The he art size is normal. Median sternotomy wires and mediastinal surgical clips are seen, likely from prio r coronary artery bypass grafting. A dual-lead cardiac pacemaker of the left chest wall ends with amor ds in expected locations. There is mild chronic elevation of the right hemidiaphragm. Old right-sided rib fractures are noted. IMPRESSION: 1. No acute cardiopulmonary abnormality. Reviewed, dictated and finalized at location A.
--- NOTE | 2020-08-18 15:28 | ECG_ITS ---
Measurements Intervals [place] Rate: 85 P: 50 WV: 175 QRS: -59 QRSD: 162 T: 16 QT: 413 QTc: 493 Interpretive Statements SINUS RHYTHM FREQUENT ATRIAL PREMATURE COMPLEXES RIGHT BUNDLE BRANCH BLOCK LEFT ANTERIOR FASCICULAR BLOCK BASELINE ARTIFACT- I, II, III, AVR, AVL, AVF, V1-V6 ABNORMAL ECG Electronically Signed On 08-18-2020 15:55:11 CDT by Yohan Kumari D.O.
--- NOTE | 2020-08-18 15:39 | PC.NURSE ---
PT PLACED IN TRIAGE BAY 2 W/ UNTIL ROOM CAN BE ASSIGNED.
[2020-08-18 15:46] LABS: Basophils Absolute Auto 0.1 K/mm3 (0.0-0.1); Basophils Percent Auto 2.4 % (0.2-1.2); Eosinophils Absolute Auto 0.3 K/mm3 (0-0.3); Eosinophils Percent Auto 5.9 % (0-4.4); Hematocrit 31.6 % (42.0-52.0); Hemoglobin 10.2 g/dL (14.0-18.0); Immature Granulocyte Absolute 0.01 K/mm3 (0.00-0.031); Immature Granulocyte Percent A 0.2 % (0-0.5); Lymphocytes Absolute Auto 1.77 K/mm3 (0.9-3.2); Lymphocytes Percent Auto 30.9 % (18.3-44.2); Mean Corpuscular HGB Conc 32.3 g/dl (32-36); Mean Corpuscular Hemoglobin 30.2 pg (26-34); Mean Corpuscular Volume 93.5 fl (80-100); Mean Platelet Volume 11.6 fl (7.4-10.4); Monocytes Absolute Auto 0.4 K/mm3 (0.1-0.6); Monocytes Percent Auto 7.7 % (2.6-8.5); Neutrophils Percent Auto 52.9 % (45.5-73.1); Platelet Count Result 269 k/mm3 (150-375); Red Blood Count 3.38 M/mm3 (4.6-6.20); Red Cell Distribution Width 14.5 % (11.5-14.5); White Blood Count 5.7 K/mm3 (4.5-10.0)
[2020-08-18 15:57] LABS: Alanine Aminotransferase 18 U/L (4-50); Albumin Level 3.6 g/dL (3.5-5.1); Alkaline Phosphatase 118 U/L (38-126); Anion Gap 9 mmol/L (8-16); Aspartate Amino Transferase 26 U/L (17-59); Bilirubin,Total 0.6 mg/dL (0.2-1.3); Blood Urea Nitrogen 23 mg/dL (9-20); Calcium 8.9 mg/dL (8.4-10.2); Carbon Dioxide 23 mmol/L (22-30); Chloride 105 mmol/L (98-107); Estimated CRCL calculation 28 ml/min; Estimated Glomerular Filt Rate 29; Glucose 198 mg/dL (75-110); Potassium 4.3 mmol/L (3.4-5.0); Sodium 137 mmol/L (137-145)
[2020-08-18 16:08] LABS: Troponin I < 0.012 ng/mL (0.000-0.034)
[2020-08-18 16:27] LABS: Add Urine Microscopic? YES; Appearance Urine Clear (Clear); Bilirubin Urine Negative (Negative); Blood Urine Negative (Negative); Color Urine Yellow (Yellow); Glucose Urine UA Negative (Negative); Ketones Urine Negative (Negative); Leukocyte Esterase Ur Negative LEU/UL (Negative); Nitrate Urine Negative (Negative); Protein Urine Negative (Negative); RBC Urine 0-2 /hpf (0-2); Specific Grav Ur 1.017 (1.001-1.035); Squamous Epithelial Cell Urine Occasional /hpf (Few); WBC Urine 0-3 /hpf
--- NOTE | 2020-08-18 17:26 | ED.GENADULT ---
HPI - General Adult General Chief complaint: Altered Mental Status Stated complaint: Altered, lethargic Time Seen by Provider: 08/18/20 15:53 Source: patient and family History of Present Illness HPI narrative: Patient is a 74 y/o male complaining of altered mental status. Patient was found to be tired and less active this morning. He had an appointment for pacemaker check and Echo. After he finished his appointment and got back home. He was not able to get out car, according to his . He was not answering question. This was approximately 10:00 AM. states that she notice that his right eye was looking toward the right side. Related Data Home Medications Medication Instructions Recorded Confirmed aspirin [Adult Low Dose Aspirin] 81 mg PO QPM 10/24/19 04/09/20 polyethylene glycol 3350 [Miralax] 17 g PO DAILY PRN 10/24/19 04/09/20 Xarelto 15 mg PO QPM 04/09/20 04/09/20 atorvastatin 40 mg PO QPM 04/09/20 04/09/20 metformin 500 mg PO BID 04/09/20 04/09/20 Allergies Allergy/AdvReac Type Severity Reaction Status Date / Time ibuprofen AdvReac Mild N/V Verified 08/18/20 15:55 Review of Systems Review of Systems: ROS unobtainable: Yes unobtainable due to mental status PMFSH Past Medical History Medical History Anemia Aortic stenosis Atrial fibrillation CAD (coronary artery disease) CKD (chronic kidney disease) stage 3, GFR 30-59 ml/min Dementia Diabetes mellitus Diabetic nephropathy Diabetic retinopathy HLD (hyperlipidemia) Hypertension Ischemia of left BKA site Osteoarthritis Pacemaker Peripheral vascular disease Phantom pain Surgical History Surgical History History of left below knee amputation Hx of appendectomy Hx of cardiac catheterization with stent placement Hx of cholecystectomy Hx of repair of right rotator cuff Hx of spinal surgery lumbar fusion Hx of tonsillectomy S/P CABG x 5 Family History Family History Mother Family history of thoracic aortic aneurysm Other Family history of arthritis Family history of coronary artery disease Social History Social History Smoking status: Never smoker Tobacco type: smokeless tobacco Smokeless tobacco user: chewing tobacco Second hand tobacco smoke exposure: No Additional smoking assessment comments: chews tobacco daily x 39 years Alcohol intake: never Substance use: never Substance use type: does not use Gender identity (if verbalized by the patient): Male Spiritual care concerns: No Agree to blood products: No Exam Const: General: no acute distress and well developed Orientation/consciousness: confusion HENMT: Head: normocephalic Ears: external ears normal General nose exam: Normal external nose present Eyes: General: appearance normal, both eyes and all related structures Conjunctivae: conjunctivae normal Neck: Neck: normal visual inspection and full ROM Chest: Chest palpation & inspection: normal inspection of the chest and no tenderness Resp: Effort & Inspection: normal respiratory effort Auscultation: clear to auscultation bilaterally Cardio: Rate: regular rate Rhythm: regular rhythm GI: GI Palp: No abdominal tenderness and Yes Soft to palpation Skin: General skin exam: normal color and turgor normal Neuro: Cognition (Neuro): abnormal cognition Motor exam (neuro): Other motor observations present (able to move all 4 extremities) Extrem: General: normal to inspection, full ROM and no pedal edema Psych: Mental Status: mental status grossly abnormal Affect: Blunted affect present Course Reevaluation(s) Reevaluation #1: Discussed with TREY Wynne, who agrees to admit to Dr. Barger. Date: 08/18/20 Time: 19:07 Vital Signs Vital signs: Vital Signs Temperature 36.2 C L 08/18/20 15:29 Pulse
[2020-08-18 17:31] LABS: Glucose Point of Care 176 (65-105)
[2020-08-18] MEDS: SODIUM CHLORIDE 0.9% IV 1,000 ML 999 ML IV CONT (19:05)
--- NOTE | 2020-08-18 20:02 | PC.NURSE ---
rn at bedside cultures x 2 drawn
--- NOTE | 2020-08-18 21:33 | ADMGEN ---
This patient, Mani Coronel Sr., was admitted to 2 Medical Room 259-01. Patient/family oriented to hospital policies and general routines including ID bracelet, bed and alarms, visiting hours, pain management, procedures, bathroom and other care routines, personal items, smoking policy, room service/diet, and visiting hours. Valuables list has been completed. Information on how to activate the Rapid Response Team has been discussed. Patient/Family are encouraged to report perceived risks to care and to ask questions if they do not understand what they are told or what they should do.
[2020-08-19] VITALS (12 sets, daily range): BP systolic 119–172; BP diastolic 49–77; PULSE 60–108; RESP 16–20; TEMP 36.2–37.2; O2SAT 95–98
[2020-08-19 07:50] LABS: Basophils Absolute Auto 0.1 K/mm3 (0.0-0.1); Basophils Percent Auto 0.7 % (0.2-1.2); Eosinophils Absolute Auto 0.5 K/mm3 (0-0.3); Eosinophils Percent Auto 3.8 % (0-4.4); Hematocrit 28.4 % (42.0-52.0); Hemoglobin 9.3 g/dL (14.0-18.0); Immature Granulocyte Absolute 0.06 K/mm3 (0.00-0.031); Immature Granulocyte Percent A 0.4 % (0-0.5); Lymphocytes Absolute Auto 1.61 K/mm3 (0.9-3.2); Lymphocytes Percent Auto 11.6 % (18.3-44.2); Mean Corpuscular HGB Conc 32.7 g/dl (32-36); Mean Corpuscular Hemoglobin 30.3 pg (26-34); Mean Corpuscular Volume 92.5 fl (80-100); Mean Platelet Volume 11.7 fl (7.4-10.4); Monocytes Absolute Auto 0.6 K/mm3 (0.1-0.6); Monocytes Percent Auto 4.6 % (2.6-8.5); Neutrophils Absolute Auto 10.9 K/mm3 (1.3-6.7); Neutrophils Percent Auto 78.9 % (45.5-73.1); Platelet Count Result 217 k/mm3 (150-375); Red Blood Count 3.07 M/mm3 (4.6-6.20); Red Cell Distribution Width 14.2 % (11.5-14.5); White Blood Count 13.8 K/mm3 (4.5-10.0)
[2020-08-19 08:09] LABS: Anion Gap 4 mmol/L (8-16); Blood Urea Nitrogen 26 mg/dL (9-20); Calcium 8.1 mg/dL (8.4-10.2); Carbon Dioxide 24 mmol/L (22-30); Chloride 109 mmol/L (98-107); Estimated CRCL calculation 36 ml/min; Estimated Glomerular Filt Rate 39; Glucose 125 mg/dL (75-110); Potassium 3.8 mmol/L (3.4-5.0); Sodium 137 mmol/L (137-145)
[2020-08-19] MEDS: cycloSPORINE 0.4 ML OPHTH SOLUTION 1 DROP EACH EYE ×2 (08:24→20:50)
[2020-08-19 08:41] LABS: Glucose Point of Care 126 (65-105)
--- NOTE | 2020-08-19 10:44 | PM.IMHP ---
H&P: HPI History of Present Illness Date/Time: 08/19/20 10:44 Chief complaint: altered mental status, hypotension Narrative: Date of visit 08/19 1000. Mani Coronel Sr. is a 74 year old demented male was brought to the emergency room by his when he became less responsive and seemed to stare to right. This a.m. he is more alert and talking cannot remember any specific events due to his dementia. states he is a little more confused than usual but then admits that he has he spells from time to time and may last from 24-48 hours then resolve. She states as long as he alert enough and taking liquids, she does not get concerned and they have resolved on their own in the past. Review of Systems Review of Systems: Narrative: Unable to obtain due to patient's unreliable historian but has no specific complaints other than chronic pain in his back no shortness of breath, fever, cough, or urinary symptoms. PMFSH Past Medical History Medical History Anemia Aortic stenosis Atrial fibrillation CAD (coronary artery disease) CKD (chronic kidney disease) stage 3, GFR 30-59 ml/min Dementia Diabetes mellitus Diabetic nephropathy Diabetic retinopathy HLD (hyperlipidemia) Hypertension Ischemia of left BKA site Osteoarthritis Pacemaker Peripheral vascular disease Phantom pain Surgical History Surgical History History of left below knee amputation Hx of appendectomy Hx of cardiac catheterization with stent placement Hx of cholecystectomy Hx of repair of right rotator cuff Hx of spinal surgery lumbar fusion Hx of tonsillectomy S/P CABG x 5 Family History Family History Mother Family history of thoracic aortic aneurysm Other Family history of arthritis Family history of coronary artery disease Social History Social History Smoking status: Never smoker Tobacco type: smokeless tobacco Smokeless tobacco user: chewing tobacco Second hand tobacco smoke exposure: No Additional smoking assessment comments: chews tobacco daily x 39 years, current user Alcohol intake: never Substance use: never Substance use type: does not use Spiritual care concerns: No Agree to blood products: No Meds Home Medications and Allergies Home Medications Medication Instructions Recorded Confirmed Type aspirin [Adult Low Dose Aspirin] 81 mg PO QPM 10/24/19 08/18/20 History polyethylene glycol 3350 [Miralax] 17 g PO PRN PRN 10/24/19 08/18/20 History donepezil [Aricept] 5 mg PO HS #0 tablet 11/07/19 08/18/20 Rx memantine [Namenda] 10 mg PO QAM #0 tablet 11/07/19 08/18/20 Rx pantoprazole [Protonix] 40 mg PO QAM #30 tablet 11/07/19 08/18/20 Rx pregabalin [Lyrica] 50 mg PO BID #60 cap 11/07/19 08/18/20 Rx ramipril [Altace] 2.5 mg PO DAILY #3 cap 11/07/19 08/18/20 Rx Xarelto 15 mg PO QPM 04/09/20 08/18/20 History atorvastatin 40 mg PO QPM 04/09/20 08/18/20 History metformin 500 mg PO BID 04/09/20 08/18/20 History melatonin 5 mg PO HS #0 tablet 04/13/20 08/18/20 Rx morphine 30 mg PO Q12H #60 tablet 04/13/20 08/18/20 Rx albuterol sulfate [Proventil HFA] 2 puff INHALATION PRN PRN 08/18/20 08/18/20 History baclofen 5 mg PO ONCE PRN 08/18/20 08/18/20 History cefadroxil 500 mg PO BID 08/18/20 08/18/20 History cyclosporine [Restasis] 1 drp OPHTHALMIC (EYE) Q12HR 08/18/20 08/18/20 History duloxetine 30 mg PO DAILY 08/18/20 08/19/20 History nicotine [Nicoderm CQ] 1 patch TRANSDERMAL PRN 08/18/20 08/18/20 History nitroglycerin 0.4 mg SUBLINGUAL PRN PRN 08/18/20 08/18/20 History tamsulosin 0.4 mg PO DAILY 08/18/20 08/19/20 History Allergies Allergy/AdvReac Type Severity Reaction Status Date / Time ibuprofen AdvReac Mild N/V Verified 08/18/20 15:55 Vital Signs Vital Signs - 24 hr 08/18/20 15:29 08/18/20 15:52 09
[2020-08-19] MEDS: SODIUM CHLORIDE 0.9% IV 1,000 ML 100 ML IV CONT ×2 (11:11→21:11)
--- NOTE | 2020-08-19 11:28 | PCPTNOTE ---
Attempted PT eval. refused therapy as she was feeding him lunch. WIil try again at later time.
[2020-08-19 17:19] LABS: Glucose Point of Care 105 (65-105)
[2020-08-19] MEDS: MELATONIN 5 MG TABLET PO (20:48)
[2020-08-19] MEDS: CEPHALEXIN 500 MG CAPSULE PO (20:48)
[2020-08-19] MEDS: DONEPEZIL HCL 5 MG TABLET PO (20:48)
[2020-08-19] MEDS: MORPHINE SULFATE (*CRX) 15 MG TABCR 30 MG PO (20:49)
[2020-08-19 22:50] LABS: Glucose Point of Care 117 (65-105)
[2020-08-20] VITALS: BP 160/69; PULSE 60; PULSE 63; RESP 18; TEMP 36.9; O2SAT 95
[2020-08-20 04:00] VITALS: PULSE 68
--- NOTE | 2020-08-20 04:46 | PC.NURSE ---
patient has refuse blood draw this morning at 04:45
--- NOTE | 2020-08-20 07:34 | PC.NURSE ---
Patient refusing morning blood draws. Phlebotomists have tried twice to stick patient and he is still refusing. Notified Dr. Cleveland.
[2020-08-20] MEDS: TAMSULOSIN HCL 0.4 MG CAPSULE PO (07:45)
[2020-08-20] MEDS: PREGABALIN (*CRX) 50 MG CAPSULE PO (07:45)
[2020-08-20] MEDS: CEPHALEXIN 500 MG CAPSULE PO (07:45)
[2020-08-20] MEDS: MORPHINE SULFATE (*CRX) 15 MG TABCR 30 MG PO (07:45)
[2020-08-20] MEDS: MEMANTINE 10 MG TABLET PO (07:45)
[2020-08-20] MEDS: PANTOPRAZOLE 40 MG TABLET PO (07:45)
[2020-08-20] MEDS: cycloSPORINE 0.4 ML OPHTH SOLUTION 1 DROP EACH EYE (07:46)
[2020-08-20] MEDS: DULoxetine HCL 30 MG CAPSULE.DR PO (07:46)
[2020-08-20] MEDS: SODIUM CHLORIDE 0.9% IV 1,000 ML 100 ML IV CONT (07:47)
[2020-08-20 08:00] VITALS: PULSE 69
--- NOTE | 2020-08-20 08:16 | PC.NURSE ---
Dr. Cleveland notified of patient refusing blood sugar check.
[2020-08-20 08:33] LABS: Basophils Absolute Auto 0.1 K/mm3 (0.0-0.1); Basophils Percent Auto 1.4 % (0.2-1.2); Eosinophils Absolute Auto 0.5 K/mm3 (0-0.3); Eosinophils Percent Auto 6.7 % (0-4.4); Hematocrit 31.1 % (42.0-52.0); Hemoglobin 10.2 g/dL (14.0-18.0); Immature Granulocyte Absolute 0.01 K/mm3 (0.00-0.031); Immature Granulocyte Percent A 0.1 % (0-0.5); Lymphocytes Absolute Auto 1.41 K/mm3 (0.9-3.2); Lymphocytes Percent Auto 19.3 % (18.3-44.2); Mean Corpuscular HGB Conc 32.8 g/dl (32-36); Mean Corpuscular Hemoglobin 30.3 pg (26-34); Mean Corpuscular Volume 92.3 fl (80-100); Mean Platelet Volume 11.9 fl (7.4-10.4); Monocytes Absolute Auto 0.5 K/mm3 (0.1-0.6); Monocytes Percent Auto 6.6 % (2.6-8.5); Neutrophils Absolute Auto 4.8 K/mm3 (1.3-6.7); Neutrophils Percent Auto 65.9 % (45.5-73.1); Platelet Count Result 225 k/mm3 (150-375); Red Blood Count 3.37 M/mm3 (4.6-6.20); Red Cell Distribution Width 13.9 % (11.5-14.5); White Blood Count 7.3 K/mm3 (4.5-10.0)
[2020-08-20 08:44] LABS: Anion Gap 7 mmol/L (8-16); Blood Urea Nitrogen 18 mg/dL (9-20); Calcium 9.1 mg/dL (8.4-10.2); Carbon Dioxide 24 mmol/L (22-30); Chloride 105 mmol/L (98-107); Estimated CRCL calculation 47 ml/min; Estimated Glomerular Filt Rate 54; Glucose 122 mg/dL (75-110); Potassium 3.2 mmol/L (3.4-5.0); Sodium 136 mmol/L (137-145)
[2020-08-20 10:00] VITALS: BP 103/52; PULSE 68; RESP 18; TEMP 36.2; O2SAT 97
[2020-08-20 11:35] VITALS: BMI 24.5
[2020-08-20 12:00] VITALS: PULSE 68
[2020-08-20] MEDS: POTASSIUM CHLORIDE 20 MEQ TABLET 40 MEQ PO (12:18)
--- NOTE | 2020-08-20 17:26 | PM.DS ---
DS: Admitting Diagnosis Admitting Diagnosis Admitting Diagnosis: altered mental status, hypotension DS: Discharge Diagnosis Discharge Diagnosis (1) Altered mental status: Qualifiers: Altered mental status type: unspecified Qualified Code(s): R41.82 - Altered mental status, unspecified Code(s): R41.82 - Altered mental status, unspecified Status: Acute Assessment and Plan: suspected all part of his underlying dementia but assessed for any possible underlying infection with negative cultures.. Chest x-ray no active disease urine clear. After hydration white count fell and was back to his baseline mental status (2) Hypotension: Qualifiers: Hypotension type: unspecified hypotension type Qualified Code(s): I95.9 - Hypotension, unspecified Code(s): I95.9 - Hypotension, unspecified Status: Acute Assessment and Plan: responded to fluid bolus and held low-dose Raf initially. Blood pressure was very labile so restarted on discharge (3) CKD (chronic kidney disease): Qualifiers: Chronic kidney disease stage: unspecified stage Qualified Code(s): N18.9 - Chronic kidney disease, unspecified Code(s): N18.9 - Chronic kidney disease, unspecified Status: Acute Assessment and Plan: creatinine peaked at 2.2 but with hydration the morning of discharge was 1.3 slightly better than his normal baseline (4) Dementia: Code(s): F03.90 - Unspecified dementia without behavioral disturbance Status: Acute Assessment and Plan: as above CT no change and after hydration return to his normal baseline (5) Diabetes mellitus: Code(s): E11.9 - Type 2 diabetes mellitus without complications Status: Acute Assessment and Plan: for sliding scale and restarted metformin on discharge with falling creatinine (6) Atrial fibrillation: Code(s): I48.91 - Unspecified atrial fibrillation Status: Acute Assessment and Plan: review of EKG looks to be sinus with PACs (7) Anemia: Code(s): D64.9 - Anemia, unspecified Status: Acute Assessment and Plan: probable chronic disease and creatinine 10.2 in the morning of discharge unchanged from previous hemoglobins from several months ago DS: Summary Hospital Course Hospital Course: 74-year-old hypertensive type 2 diabetic with dementia admitted with altered mental status. states that he has these episodes maybe once a month and will last 24-48 hours. As long as she is taking fluids well she does not get that concerned but this time he had not been eating or drinking well and seen to stare more to the right side. CT revealed no acute changes and no MR done with his pacemaker. Slightly hypotensive on admission and with IV hydration blood pressure cameron creatinine fell and mental status improved. One of 2 blood cultures grew Staph epi thought to be a contaminant and white cell count was normal at discharge. Most visit problems seem to be related to his ongoing dementia I am probably a matter of time before will not be able to take care of him at home Time Spent with Patient Time attestation: Total time spent providing and/or coordinating discharge services: 35 minutes Exam Narrative: Exam Narrative: condition on discharge blood pressure 104/52 pulse 68 regular saturating 97% on room air afebrile lungs were clear CV regular rate rhythm abdomen benign extremities left BKA and right no edema neuro alert talkative back to his baseline mental status is much improved from admission taking diet better drinking fluids and stable to go home DS: Data Data Completed and Pending Labs on day of discharge: Labs from last 24 hours 08/20/20 08/20/20 08/19/20 08:23 08:23 20:39 WBC 7.3 RBC 3.37 L Hgb 10.2 L Hct 31.1 L MCV 92.3 MCH 30.3 MCHC 32.8 RDW 13.9 Plt Count 225 MPV 11.9 H Immature Gran %
== END 2020-08-20 13:59 | disposition home or self-care (01) ==
LOC: ANHED 16:00 → ANH2MED 21:24
PROVIDERS: Admitting Provider Internal Medicine; Emergency Provider Emergency Medicine; PCP Family Medicine; Visit Provider Internal Medicine
DX: R41.82 Altered mental status, unspecified (principal); I95.9 Hypotension, unspecified; F03.90 Unspecified dementia, unspecified severity, without behavioral disturbance, psychotic disturbance, mood disturbance, and anxiety; I65.23 Occlusion and stenosis of bilateral carotid arteries; I35.0 Nonrheumatic aortic (valve) stenosis; I48.91 Unspecified atrial fibrillation; Z79.01 Long term (current) use of anticoagulants; I45.10 Unspecified right bundle-branch block; I25.10 Atherosclerotic heart disease of native coronary artery without angina pectoris; Z95.0 Presence of cardiac pacemaker; I12.9 Hypertensive chronic kidney disease with stage 1 through stage 4 chronic kidney disease, or unspecified chronic kidney disease; E11.22 Type 2 diabetes mellitus with diabetic chronic kidney disease; N18.3 Chronic kidney disease, stage 3 (moderate); E11.51 Type 2 diabetes mellitus with diabetic peripheral angiopathy without gangrene; Z79.4 Long term (current) use of insulin; M19.90 Unspecified osteoarthritis, unspecified site; E11.319 Type 2 diabetes mellitus with unspecified diabetic retinopathy without macular edema; D64.9 Anemia, unspecified; E78.5 Hyperlipidemia, unspecified; F17.220 Nicotine dependence, chewing tobacco, uncomplicated; Z89.512 Acquired absence of left leg below knee; Z95.1 Presence of aortocoronary bypass graft; Z95.5 Presence of coronary angioplasty implant and graft
CPT/HCPCS: 36415; 51701; 70450; 71045; 80048; 80053; 80061; 81001; 82948; 83036; 84484; 85025; 87040; 87077; 87186; 93005; 93880; 96360; 96361; 96365; 97161; 97165; 99285; A9270; G0378; J3370; J7030

== ENCOUNTER 2020-09-24 12:13 | Observation (INO) | payer OTHER, SELFPAY ==
[2020-09-24] VITALS (12 sets, daily range): BP systolic 77–124; BP diastolic 47–74; PULSE 62–84; RESP 14–181; TEMP 36.1–36.9; O2SAT 96–100; BMI 25.1
--- NOTE | ~2020-09-24 | CT_ITS ---
EXAMINATION: CT brain wo con DATE: 09/24/2020 14:14 INDICATION: Syncopal episode. Dizziness. TECHNIQUE: Computed tomography (CT) of the head was performed without intravenous contrast. The mA wa s adjusted according to patient size. Iterative reconstruction technique was employed. Exam dose: 60 5.33 mGy-cm total exam DLP. COMPARISON: 08/18/2020 CT brain FINDINGS: Vertebral, basilar and bilateral carotid siphon internal carotid artery calcifications are noted. There is nonspecific diminished attenuation of the subcortical and periventricular cerebral white mat ter, likely due to chronic small vessel ischemic changes. Mild bilateral basal ganglia calcifications. There is cerebral and cerebellar atrophy. No subdural or epidural hematoma. Minority of mastoid air cells are opacified bilaterally. The included paranasal sinuses are normally developed and aerated. No fracture or bone destruction of the cranial vault. IMPRESSION: Cerebral and cerebellar atrophy Cerebral atherosclerosis and chronic small vessel ischemic changes of the cerebral white matter No acute intracranial finding Reviewed, dictated and finalized at [facility]. Reviewed, dictated and finalized at location [facility]. IMPRESSION: Cerebral and cerebellar atrophy Cerebral atherosclerosis and chronic small vessel ischemic changes of the cereb ral white matter No acute intracranial finding
--- NOTE | ~2020-09-24 | XR_ITS ---
XR chest 2V DATE: 09/24/2020 14:25 INDICATION: Syncope TECHNIQUE: AP and lateral views COMPARISON: 08/18/2020 portable AP chest 09/16/2020 CT chest abdomen FINDINGS: Left-sided pacemaker leads overlying right atrium and right ventricle. Status post sternotomy/coronary artery bypass graft surgery. Heart size is within upper limits of normal. There is aortic calcification and mild tortuosity. There is mild to moderate elevation of the right leaf of the diaphragm. No pulmonary infiltrate or consolidation, pleural effusion or pulmonary vascular congestion or pneumo thorax. Surgical clips overlie the right upper quadrant, secondary to cholecystectomy Diffuse osteopenia. There is mild anterior wedging and loss of the upper thoracic vertebral body. IMPRESSION: Status post sternotomy/CABG Dual-lead left-sided pacemaker device No active pulmonary disease Reviewed, dictated and finalized at location [facility].
--- NOTE | ~2020-09-24 | CT_ITS ---
EXAMINATION: CT chest abdomen wo con DATE: 09/24/2020 14:14 INDICATION: Syncopal episode TECHNIQUE: Computed tomography (CT) of the chest and abdomen was performed without intravenous contra st. Automated exposure control and iterative reconstruction technique were employed. Exam dose: 878. 61 mGy-cm total exam DLP. COMPARISON: 05/16/2018 CT abdomen pelvis FINDINGS: CHEST CT: Status post sternotomy. Normal size and homogeneous attenuation of the thyroid gland. Left-sided pacemaker device with leads in right atrium and right ventricle. Normal heart size. No per icardial or pleural effusion. No thoracic aortic aneurysm is evident. This noncontrast examination is limited for detection of aort ic dissection. Aortic, great vessel and coronary artery calcification. Mild discoid atelectasis or scarring at the lingula. No pulmonary infiltrate or consolidation or pulm onary mass lesion is evident. ABDOMEN CT: Status post cholecystectomy. No hepatic, splenic, pancreas, adrenal space-occupying mass lesion. No bile duct or pancreatic duct d ilatation. There are numerous bilateral renal cysts, including multiple large exophytic cyst, the largest on the right measuring up to almost 9 cm dimension, the largest on the left measuring greater than 7 cm. There is extensive abdominal aortic calcification and calcification of the celiac, superior mesenteri c and renal arteries, inferior mesenteric and iliac arteries. No intraperitoneal or retroperitoneal mass lesion or adenopathy or ascites is detected. Small fat-containing umbilical hernia. Status post posterior spinal fusion at L4-S1 IMPRESSION: Status post sternotomy Status post cholecystectomy Numerous bilateral renal cysts Status post posterior spinal fusion at L4-S1. The Reviewed, dictated and finalized at [facility]. Reviewed, dictated and finalized at location [facility].
[2020-09-24 12:18] LABS: Glucose Point of Care 208 (65-105)
--- NOTE | 2020-09-24 12:18 | ECG_ITS ---
Measurements Intervals [place] Rate: 81 P: 247 [place]: 201 QRS: -50 QRSD: 165 T: 31 QT: 404 QTc: 469 Interpretive Statements ELECTRONIC ATRIAL PACEMAKER WITH INHIBITION ELECTRONIC VENTRICULAR PACEMAKER COMPLEX AND ATRIAL AND VENTRICULAR PREMATURE COMPLEXES RIGHT BUNDLE BRANCH BLOCK LEFT ANTERIOR FASCICULAR BLOCK BASELINE WANDER- AVR, AVL, AVF, V4 ABNORMAL ECG Electronically Signed On 09-24-2020 12:54:23 CDT by Yohan Kumari D.O.
[2020-09-24] MEDS: SODIUM CHLORIDE 0.9% IV 1,000 ML 1000 ML (12:24)
[2020-09-24] MEDS: SODIUM CHLORIDE 0.9% IV 1,000 ML 999 ML IV CONT (12:59)
--- NOTE | 2020-09-24 13:00 | ED.GENADULT ---
HPI - General Adult General Chief complaint: Syncope Stated complaint: SYNCOPY/FALL Time Seen by Provider: 09/24/20 12:41 Source: patient Mode of arrival: EMS Limitations: no limitations History of Present Illness HPI narrative: 74 years old white male presented to the ED because of dizziness and syncope. Patient was feeling dizzy this morning, trying to take a bath in the hot,, fell, possible loss of consciousness before the fall. Patient denying any injury. Currently patient complaining of mid chest pain which is chronic, is not different than before, patient reported having similar symptom of chest pain for years and nobody is able to make a diagnosis. Patient reports frequent urination lately. Patient on Xarelto. Patient on morphine 4 mg twice a day as needed for chronic pain. Patient is DNR Related Data Home Medications Medication Instructions Recorded Confirmed aspirin [Adult Low Dose Aspirin] 81 mg PO QPM 10/24/19 08/18/20 polyethylene glycol 3350 [Miralax] 17 g PO PRN PRN 10/24/19 08/18/20 Xarelto 15 mg PO QPM 04/09/20 08/18/20 atorvastatin 40 mg PO QPM 04/09/20 08/18/20 metformin 500 mg PO BID 04/09/20 08/18/20 Restasis 1 drp OPHTHALMIC (EYE) Q12HR 08/18/20 08/18/20 albuterol sulfate [Proventil HFA] 2 puff INHALATION PRN PRN 08/18/20 08/18/20 baclofen 5 mg PO ONCE PRN 08/18/20 08/18/20 cefadroxil 500 mg PO BID 08/18/20 08/18/20 duloxetine 30 mg PO DAILY 08/18/20 08/19/20 nicotine [Nicoderm CQ] 1 patch TRANSDERMAL PRN 08/18/20 08/18/20 nitroglycerin 0.4 mg SUBLINGUAL PRN PRN 08/18/20 08/18/20 tamsulosin 0.4 mg PO DAILY 08/18/20 08/19/20 Allergies Allergy/AdvReac Type Severity Reaction Status Date / Time ibuprofen AdvReac Mild N/V Verified 09/24/20 12:23 Review of Systems Review of Systems: Narrative: CONSTITUTIONAL: Denies fever, chills, or sweats. EYES: Denies visual changes, redness, or discharge. ENT: Denies rhinorrhea, congestion, sore throat, or otalgia. CARDIOVASCULAR: Denies chest pain, palpitations, or edema. RESPIRATORY: Denies cough or dyspnea. GASTROINTESTINAL: Denies abdominal pain, nausea, vomiting, or diarrhea. GENITOURINARY: Denies dysuria or hematuria. SKIN: Denies rash or itching. MUSCULOSKELETAL: Denies back pain, joint pain, or myalgia. NEUROLOGIC: Dizziness PSYCHIATRIC: Denies anxiety or depression. PMFSH Past Medical History Medical History Anemia Aortic stenosis Atrial fibrillation CAD (coronary artery disease) CKD (chronic kidney disease) stage 3, GFR 30-59 ml/min Dementia Diabetes mellitus Diabetic nephropathy Diabetic retinopathy HLD (hyperlipidemia) Hypertension Ischemia of left BKA site Osteoarthritis Pacemaker Peripheral vascular disease Phantom pain Surgical History Surgical History History of left below knee amputation Hx of appendectomy Hx of cardiac catheterization with stent placement Hx of cholecystectomy Hx of repair of right rotator cuff Hx of spinal surgery lumbar fusion Hx of tonsillectomy S/P CABG x 5 Family History Family History Mother Family history of thoracic aortic aneurysm Other Family history of arthritis Family history of coronary artery disease Social History Social History Smoking status: Never smoker Tobacco type: smokeless tobacco Smokeless tobacco user: chewing tobacco Second hand tobacco smoke exposure: No Additional smoking assessment comments: chews tobacco daily x 39 years, current user Alcohol intake: never Substance use: never Substance use type: does not use Spiritual care concerns: No Agree to blood products: No Exam Narrative: Exam Narrative: General appearance: Well-developed, well-nourished Skin: Pale Head: Normocephalic, nontraumatic Eyes: Clear conjunctiva ENT: Oropharynx normal, ears n
[2020-09-24 13:46] LABS: Basophils Absolute Auto 0.1 K/mm3 (0.0-0.1); Basophils Percent Auto 1.6 % (0.2-1.2); Eosinophils Absolute Auto 0.1 K/mm3 (0-0.3); Eosinophils Percent Auto 2.5 % (0-4.4); Hematocrit 28.3 % (42.0-52.0); Hemoglobin 9.1 g/dL (14.0-18.0); Immature Granulocyte Absolute 0.02 K/mm3 (0.00-0.031); Immature Granulocyte Percent A 0.4 % (0-0.5); Lymphocytes Absolute Auto 1.03 K/mm3 (0.9-3.2); Lymphocytes Percent Auto 18.3 % (18.3-44.2); Mean Corpuscular HGB Conc 32.2 g/dl (32-36); Mean Corpuscular Hemoglobin 30.3 pg (26-34); Mean Corpuscular Volume 94.3 fl (80-100); Mean Platelet Volume 11.2 fl (7.4-10.4); Monocytes Absolute Auto 0.4 K/mm3 (0.1-0.6); Monocytes Percent Auto 7.3 % (2.6-8.5); Neutrophils Absolute Auto 3.9 K/mm3 (1.3-6.7); Neutrophils Percent Auto 69.9 % (45.5-73.1); Platelet Count Result 236 k/mm3 (150-375); Red Cell Distribution Width 14.2 % (11.5-14.5); White Blood Count 5.6 K/mm3 (4.5-10.0)
[2020-09-24 13:51] LABS: Add Urine Microscopic? YES; Appearance Urine Clear (Clear); Bilirubin Urine 1+ (Negative); Blood Urine Negative (Negative); Color Urine Yellow (Yellow); Glucose Urine UA Negative (Negative); Hyaline Casts Urine 50+ /lpf; Ketones Urine Negative (Negative); Leukocyte Esterase Ur Negative LEU/UL (Negative); Mucus Urine Rare /lpf; Nitrate Urine Negative (Negative); Protein Urine 1+ mg/dL (Negative); RBC Urine 0-2 /hpf (0-2); Specific Grav Ur 1.025 (1.001-1.035); Squamous Epithelial Cell Urine Few /hpf (Few)
[2020-09-24 13:56] LABS: INR 2.4; Partial Thromboplastin Time 33.5 SECONDS (22.3-36.8); Prothrombin Time 25.3 Seconds (11.1-14.7)
[2020-09-24 13:57] LABS: Lactic Acid Reflex 3.1 mmol/L (0.7-2.1)
[2020-09-24 13:59] LABS: Alanine Aminotransferase 14 U/L (4-50); Albumin Level 3.2 g/dL (3.5-5.1); Alkaline Phosphatase 91 U/L (38-126); Anion Gap 7 mmol/L (8-16); Aspartate Amino Transferase 20 U/L (17-59); Bilirubin,Total 0.6 mg/dL (0.2-1.3); Blood Urea Nitrogen 30 mg/dL (9-20); CRP < 0.5 mg/dL (<1.0); Calcium 8.8 mg/dL (8.4-10.2); Carbon Dioxide 26 mmol/L (22-30); Chloride 105 mmol/L (98-107); Estimated CRCL calculation 27 ml/min; Estimated Glomerular Filt Rate 28; Glucose 212 mg/dL (75-110); Potassium 4.4 mmol/L (3.4-5.0); Sodium 138 mmol/L (137-145)
[2020-09-24 14:06] LABS: Estimated CRCL calculation 25 ml/min; Estimated Glomerular Filt Rate 25
[2020-09-24 16:44] LABS: Reflex Lactic Acid Yes or No Add Lactic
[2020-09-24 17:20] LABS: Lactic Acid 1.6 mmol/L (0.7-2.1)
--- NOTE | 2020-09-24 18:05 | ADMGEN ---
This patient, Mani Coronel Sr., was admitted to 2 Medical Room 241-01. Patient/family oriented to hospital policies and general routines including ID bracelet, bed and alarms, visiting hours, pain management, procedures, bathroom and other care routines, personal items, smoking policy, room service/diet, and visiting hours. Information on how to activate the Rapid Response Team has been discussed. Patient/Family are encouraged to report perceived risks to care and to ask questions if they do not understand what they are told or what they should do.
[2020-09-24] MEDS: HYDROcodone/acetaminophen (*CRX) 5-325 MG TABLET 1 TAB (18:06)
[2020-09-24] MEDS: SODIUM CHLORIDE 0.9% IV 1,000 ML 125 ML IV CONT (19:12)
--- NOTE | 2020-09-24 21:21 | PM.IMHP ---
H&P: HPI History of Present Illness Date/Time: 09/24/20 21:21 Chief complaint: Syncope, Anemia, NATALIA Narrative: Mani Coronel Sr. is a 74 year old male Who was just discharged from here on 08/20/2020. The patient was here with altered mental status at that time. He has got to be due to his dementia. Or could be an M infectious disease however his urine cultures were negative. After he was hydrated at that time he went back to his baseline mentation. He was also found to be hypotensive at that time as well. They held his blood pressure medicine at that time. Sit and they restarted back on discharge. He does have chronic renal disease. He had a creatinine of 2.2 and then it came down to 1.3 after hydration. His metformin was restarted because his creatinine was going back to normal. He also has chronic anemia with a hemoglobin around 10. The patient came into the emergency room today because of a syncopal episode. The patient stated when he woke up this morning he was feeling dizzy. He was trying to take a hot bath he was sitting on a shower chair and felt dizzy and fell into the bathtub. His son-in-law was not able to get him back up out of the tub. He tells me he did not hit his head. He has symptoms of chest pain for years and no but he is able to make a diagnosis. Patient is on chronic pain medication as well. He is a DNR. He was afebrile when he came in. His blood pressure was 77/47. H&H was 9.1 and 28.3. The patient was found to be pale but his stated he is always pale. The is since gone home and cannot verify his home medications. Blood sugar was 208. Has lactic was noted to be 3.1. Creatinine was listed at 2.5. The patient was given IV fluids. He was also given a pain pill. The patient is admitted as observation to medical floor for syncopal episode acute kidney injury and hypotension. Date of service 09/16/2020 Review of Systems Review of Systems: All systems reviewed & are unremarkable except as noted in HPI and below Constitutional: Constitutional: Reports as per HPI and Reports no additional constitutional complaints Eyes: Eyes: Reports as per HPI and Reports no additional eye complaints ENT: Reports system reviewed and no additional complaints, except as documented and Reports Normal hearing present Cardiovascular: Cardiovascular: Reports no additional cardiovascular complaints Respiratory: Respiratory: Reports no additional respiratory complaints and Reports no additional respiratory complaints Gastrointestinal: Gastrointestinal: Reports as per HPI and Reports no additional gastrointestinal complaints Musculoskeletal: Musculoskeletal: Reports no additional musculoskeletal complaints Integumentary/Breasts: Skin/Breast: Reports system reviewed and no additional complaints, except as docu and Reports as per HPI Neurologic: Reports system reviewed and no additional complaints, except as documented, Reports as per HPI and Reports Normal hearing present Psychiatric: Psychiatric: Reports no additional psychiatric complaints and Reports as per HPI Endocrine: Endocrine: Reports no additional endocrine complaints Hematologic/Lymphatic: Hematologic/Lymphatic: Reports no additional hematologic/lymphatic complaints Allergic/Immunologic: Allergic/Immunologic: Reports no additional allergic/immunologic complaints [facility] Past Medical History Medical History Anemia Aortic stenosis Atrial fibrillation CAD (coronary artery disease) CKD (chronic kidney disease) stage 3, GFR 30-59 ml/min Dementia Diabetes mellitus Diabetic nephropathy Diabetic retinopathy HLD (hyperlipidemia) Hypertension Ischemia of left BKA site Osteoarthritis Pacemaker Peripheral vascular disease Phantom pain Surgical History Surgical History History of left below knee amputation Hx of appendectomy Hx of cardiac ca
[2020-09-24] MEDS: RIVAROXABAN 15 MG TABLET PO (22:55)
[2020-09-24] MEDS: DONEPEZIL HCL 5 MG TABLET PO (22:55)
[2020-09-24] MEDS: MORPHINE SULFATE (*CRX) 30 MG TABCR PO (22:55)
[2020-09-24] MEDS: MELATONIN 5 MG TABLET PO (22:55)
[2020-09-25] VITALS (16 sets, daily range): BP systolic 105–161; BP diastolic 55–86; PULSE 50–79; RESP 16–18; TEMP 36.2–36.7; O2SAT 93–100
[2020-09-25] MEDS: SODIUM CHLORIDE 0.9% IV 1,000 ML 125 ML IV CONT ×2 (03:12→11:24)
[2020-09-25 06:15] LABS: Anion Gap 4 mmol/L (8-16); Blood Urea Nitrogen 30 mg/dL (9-20); Calcium 8.4 mg/dL (8.4-10.2); Carbon Dioxide 24 mmol/L (22-30); Chloride 109 mmol/L (98-107); Estimated CRCL calculation 33 ml/min; Estimated Glomerular Filt Rate 35; Glucose 71 mg/dL (75-110); Potassium 4.2 mmol/L (3.4-5.0); Sodium 137 mmol/L (137-145)
[2020-09-25 07:57] LABS: Glucose Point of Care 63 (65-105)
[2020-09-25 08:15] LABS: Glucose Point of Care 74 (65-105)
[2020-09-25] MEDS: PANTOPRAZOLE 40 MG TABLET PO (08:57)
[2020-09-25] MEDS: PREGABALIN (*CRX) 50 MG CAPSULE PO ×2 (08:57→17:35)
[2020-09-25] MEDS: MEMANTINE 10 MG TABLET PO (08:57)
[2020-09-25] MEDS: MORPHINE SULFATE (*CRX) 30 MG TABCR PO ×2 (08:57→21:01)
[2020-09-25] MEDS: DULoxetine HCL 30 MG CAPSULE.DR PO (08:58)
[2020-09-25] MEDS: TAMSULOSIN HCL 0.4 MG CAPSULE PO (08:58)
[2020-09-25] MEDS: ASPIRIN 81 MG ENTERIC TABLET PO (09:11)
[2020-09-25 11:33] LABS: Glucose Point of Care 97 (65-105)
--- NOTE | 2020-09-25 14:09 | ECG_ITS ---
Measurements Intervals [place] Rate: 67 P: 97 TX: 226 QRS: -49 QRSD: 165 T: 4 QT: 432 QTc: 459 Interpretive Statements ELECTRONIC ATRIAL PACEMAKER RIGHT BUNDLE BRANCH BLOCK LEFT ANTERIOR FASCICULAR BLOCK ABNORMAL ECG Electronically Signed On 09-25-2020 14:34:40 CDT by Yohan Kumari D.O.
--- NOTE | 2020-09-25 14:14 | PM.IMPN ---
Progress Note: A&P Assessment and Plan (1) Chest pain: Code(s): R07.9 - Chest pain, unspecified Status: Acute Assessment and Plan: ----- I will draw troponin and do an EKG at this time. No troponins drawn on admission. The patient and his family member states that this has been going on for 3 months. It sometimes shoots down his left arm and is worse with activity. At times he feels short of breath with this. 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 Gonzalez, who wanted to do a stress test outpatient. He had an echocardiogram 5 weeks ago. He had a CABG about 10-20 years ago and a pacemaker about 5 years ago. Apparently he was offered a cardiac catheterization recently which he refused in the past. Of note, he was recently started on isosorbide which he does not think has really helped the pain. he also has a significant murmur but denies bowel disease that he knows of. will consult cardiology at this time And interrogate his pacemaker. (2) Syncope: Qualifiers: Syncope type: unspecified Qualified Code(s): R55 - Syncope and collapse Code(s): R55 - Syncope and collapse Status: Acute Assessment and Plan: ----- dizziness with syncope with unclear etiology at this time. He has previously had carotid ultrasound which was negative for disease. He was in the shower but had not started the shower. his blood pressure was low and his labs showed dehydration which makes hypovolemia likely cause. On top of that, he recently started isosorbide which can vasodilate. because of his significant history, will proceed with cardiac workup as stated above. He is not orthostatic today. Accu-Chek was not done at home that I am aware of but he has been a little on the low side, could also be an etiology. (3) Anemia: Qualifiers: Anemia type: unspecified type Qualified Code(s): D64.9 - Anemia, unspecified Code(s): D64.9 - Anemia, unspecified Status: Acute Assessment and Plan: ----- Patient's H&H is 9.1 and 28.3 and he is between 9 and 10 on his hemoglobin. Continue to monitor H&H. (4) NATALIA (acute kidney injury): Code(s): N17.9 - Acute kidney failure, unspecified Status: Acute Assessment and Plan: ----- Improving with IV therapy now 1.9. Patient's creatinine is 2.5 today when he was discharged last month he was 1.3 but looks like his baseline is a little above that. Because of his possible cardiac disease, I am going to decrease the fluids at this time but continue them. The patient has a history of dementia and perhaps he is not drinking as much fluid. (5) Hypotension: Qualifiers: Hypotension type: unspecified hypotension type Qualified Code(s): I95.9 - Hypotension, unspecified Code(s): I95.9 - Hypotension, unspecified Status: Acute Assessment and Plan: ------ continue to hold blood pressure medications. Last blood pressure 128/66. See above (6) Dementia: Code(s): F03.90 - Unspecified dementia without behavioral disturbance Status: Acute Assessment and Plan: ----- chronic. (7) Diabetes mellitus: Code(s): E11.9 - Type 2 diabetes mellitus without complications Status: Acute Assessment and Plan: ----- Last glucose 97. Continue Accu-Cheks. Will draw A1c in the morning, likely will not restart metformin . (8) Atrial fibrillation: Code(s): I48.91 - Unspecified atrial fibrillation Status: Acute Assessment and Plan: ------ patient has a pacemaker and has a controlled rate. He is on Xarelto. Will need to see how he does with physical therapy and talked to the patient about risk versus benefit of anticoagulation if he continues to be weak. Time Spent With Patient Time with patient: 25 - 35 minutes Subjective Date/time seen: 09/25/20 14:14 Interval history: Pt is a 74-year-old male here for syncope
--- NOTE | 2020-09-25 14:53 | PCOTNOTE ---
OT evaluation attempted. Patient does not have prosthetic leg in hospital at this time and will not transfer without it. Family present and stated that they will bring prosthetic tomorrow 09/26. Will attempt OT evaluation tomorrow.
[2020-09-25 15:08] LABS: NT Pro B Type Natriuretic Pept 403 PG/ML (5-100)
[2020-09-25 15:10] LABS: Troponin I < 0.012 ng/mL (0.000-0.034)
[2020-09-25 18:14] LABS: Troponin I < 0.012 ng/mL (0.000-0.034)
[2020-09-25] MEDS: DONEPEZIL HCL 5 MG TABLET PO (20:59)
[2020-09-25] MEDS: MELATONIN 5 MG TABLET PO (20:59)
[2020-09-25] MEDS: SODIUM CHLORIDE 0.9% IV 1,000 ML 75 ML IV CONT (21:03)
[2020-09-25 21:39] LABS: Troponin I < 0.012 ng/mL (0.000-0.034)
[2020-09-26] VITALS (7 sets, daily range): BP systolic 101–154; BP diastolic 51–71; PULSE 60–66; RESP 16–18; TEMP 36.4–36.6; O2SAT 96–98
[2020-09-26 05:44] LABS: Hematocrit 29.8 % (42.0-52.0); Hemoglobin 9.7 g/dL (14.0-18.0); Mean Corpuscular HGB Conc 32.6 g/dl (32-36); Mean Corpuscular Volume 92.3 fl (80-100); Mean Platelet Volume 11.3 fl (7.4-10.4); Platelet Count Result 250 k/mm3 (150-375); Red Blood Count 3.23 M/mm3 (4.6-6.20); Red Cell Distribution Width 13.6 % (11.5-14.5); White Blood Count 5.2 K/mm3 (4.5-10.0)
[2020-09-26 05:47] LABS: Anion Gap 6 mmol/L (8-16); Blood Urea Nitrogen 26 mg/dL (9-20); Calcium 8.7 mg/dL (8.4-10.2); Carbon Dioxide 27 mmol/L (22-30); Chloride 104 mmol/L (98-107); Estimated CRCL calculation 41 ml/min; Estimated Glomerular Filt Rate 46; Glucose 122 mg/dL (75-110); Potassium 4.7 mmol/L (3.4-5.0); Sodium 137 mmol/L (137-145)
[2020-09-26 05:54] LABS: Hemoglobin A1C 8.2 % (<5.7)
[2020-09-26] MEDS: TAMSULOSIN HCL 0.4 MG CAPSULE PO (08:45)
[2020-09-26] MEDS: PANTOPRAZOLE 40 MG TABLET PO (08:45)
[2020-09-26] MEDS: DULoxetine HCL 30 MG CAPSULE.DR PO (08:45)
[2020-09-26] MEDS: ASPIRIN 81 MG ENTERIC TABLET PO (08:45)
[2020-09-26] MEDS: MEMANTINE 10 MG TABLET PO (08:45)
[2020-09-26] MEDS: MORPHINE SULFATE (*CRX) 30 MG TABCR PO (08:46)
[2020-09-26] MEDS: PREGABALIN (*CRX) 50 MG CAPSULE PO (08:46)
--- NOTE | 2020-09-26 11:36 | PC.NURSE ---
Glucometer readings: 09/25/20 0742 63 09/25/20 0813 74 09/25/20 1123 97 09/25/20 1624 166 09/25/20 1939 193 09/25/20 2106 195 09/26/20 1058 195 Physician notified that glucometer readings not consistently uploading to electronic chart, nursing will enter them manually into 'Notes.
[2020-09-26 12:34] LABS: Glucose Point of Care 166 (65-105)
[2020-09-26 12:40] LABS: Glucose Point of Care 193 (65-105)
[2020-09-26 12:41] LABS: Glucose Point of Care 63 (65-105)
[2020-09-26 12:43] LABS: Glucose Point of Care 195 (65-105)
--- NOTE | 2020-09-26 12:44 | PM.CNCAR ---
Assessment and Plan Additional Plan 74-year-old man with a complicated cardiac history including surgical myocardial revascularization with a 5 vessel bypass operation about a decade ago. He also has moderate to severe aortic valve stenosis and carries a diagnosis of sick sinus syndrome for which he has a normally functioning dual-chamber pacemaker. He entered the hospital now with an episode of brief syncope probably related to hypotension and dehydration this is the 2nd such episode recently here at [facility]. After the 1st hospitalization his modest dose of ramipril has been resumed. The patient and his were not clear or did not have a good understanding of his aortic valve disease and a long time was spent discussing with them the implications of that. I told him that there is no evidence of acute coronary syndrome his ECG shows sinus rhythm with a chronic right bundle branch block his biomarkers are negative x3 sets. He is not a gentleman that I would bring to the kiln labourer here at [facility] in the setting for that reason plus also given his DNR status. In my opinion he needs to significantly consider both his coronary and aortic valve disease together before making decisions about considering catheterization. If catheterization is going to be done it should be performed at a center where his valve disease can also be assessed In my opinion. I would simply recommend discontinuing his ramipril, not resuming it. Would probably resume his modest dose of isosorbide and he tells me that he has of previously scheduled follow-up with appointment with Dr. Ponce in the next 2-3 weeks. At that point he can have a more another thoughtful discussion about his decision about aggressive treatment of both coronary and aortic valve disease. Srinivas Walls MD [facility] History of Present Illness History of Present Illness Consult date/time: 09/26/20 12:44 Consult reason: chest pain Reason For Visit: Syncope, Anemia, NATALIA Narrative: This 74-year-old man with a long history of coronary artery disease, previous bypass surgery, pacemaker implantation and aortic valve stenosis being seen at the request of the hospitalist because of chest pain. The patient's entire record including previous office notes and recent noninvasive testing were reviewed as well. The patient was brought to the hospital about 48 hours ago because of an episode of loss of consciousness in the bathroom while I think he was taking a bath. He had he felt lightheaded and presyncopal and sounds like lost consciousness briefly and recovered spontaneously. Upon evaluation in the impression was he was hypotensive and probably a bit dehydrated by exam and by lab data. He has been given some IV fluid for rehydration and we have been asked to see him in consultation. He reports about a 6-7 months history of intermittent episodes of chest pain which he did describe to Dr. Fair during his last office appointment with him. He describes episodes of unpredictable central chest discomfort that sometimes radiates to the jaw lasts about 2-3 minutes per episode and then subsides. He is known to have coronary artery disease with previous coronary artery bypass surgery he thinks about 10 years ago at [facility]. I do not have an operative note from that to review at the time of this dictation. He has been seeing Dr. fox in follow-up for at least about 5 years now according to our office records. He has had numerous office visits that are detailed where he has intermittent episodes of chest pain. He did have a follow-up left heart catheterization that is mentioned in the chart in October of 2015 that demonstrated him to be well revascularized. Because of these symptoms he had a Lexiscan nuclear stress test in September of last year that demonstrated small area of ischemia involving the apex, apical inferior and apical lateral segments with a normal ejection fraction. He had
[2020-09-26 12:45] LABS: Glucose Point of Care 195 (65-105)
--- NOTE | 2020-09-26 14:07 | PM.DS ---
DS: Admitting Diagnosis Admitting Diagnosis Admitting Diagnosis: Syncope, Anemia, NATALIA DS: Discharge Diagnosis Discharge Diagnosis (1) Chest pain: Code(s): R07.9 - Chest pain, unspecified Status: Acute Assessment and Plan: -----patient has chronic chest pain that he sees cardiology for. He has some chest pain while hospitalized with no signs of ACS on the EKG and troponins negative x3. He had an echo earlier this year which shows valve disease and cardiology saw the patient in consult while he was hospitalized. They made medication adjustments and said he should follow-up in their office and may consider getting a further workup at a tertiary care center. Patient is unsure if he wants to go through with the additional workup after being provided with all the information. Family at bedside. (2) Syncope: Qualifiers: Syncope type: unspecified Qualified Code(s): R55 - Syncope and collapse Code(s): R55 - Syncope and collapse Status: Acute Assessment and Plan: ----- dizziness with syncope likely due to hypotension and medications were adjusted. He has previously had carotid ultrasound which was negative for disease. He was in the shower but had not started the shower. his blood pressure was low and his labs showed dehydration which makes hypovolemia likely cause. On top of that, he recently started isosorbide which can vasodilate. Accu-Chek was not done at home that I am aware of but he has been a little on the low side, could also be an etiology. (3) Anemia: Qualifiers: Anemia type: unspecified type Qualified Code(s): D64.9 - Anemia, unspecified Code(s): D64.9 - Anemia, unspecified Status: Acute Assessment and Plan: -----stable, hemoglobin at discharge 9.7 (4) NATALIA (acute kidney injury): Code(s): N17.9 - Acute kidney failure, unspecified Status: Acute Assessment and Plan: -----improved with IV therapy creatinine 1.5 at discharge. (5) Hypotension: Qualifiers: Hypotension type: unspecified hypotension type Qualified Code(s): I95.9 - Hypotension, unspecified Code(s): I95.9 - Hypotension, unspecified Status: Acute Assessment and Plan: ------blood pressure medications adjusted (6) Dementia: Code(s): F03.90 - Unspecified dementia without behavioral disturbance Status: Acute Assessment and Plan: ----- chronic. (7) Diabetes mellitus: Code(s): E11.9 - Type 2 diabetes mellitus without complications Status: Acute Assessment and Plan: ----- Last glucose 195. Continue Accu-Cheks. A1c 8.2 . (8) Atrial fibrillation: Code(s): I48.91 - Unspecified atrial fibrillation Status: Acute Assessment and Plan: ------ patient has a pacemaker and has a controlled rate. He is on Xarelto. Did not want to work with PT but OT states he was a minimum assist and the patient felt comfortable going home DS: Summary Hospital Course Reason for hospitalization: Hypotension, NATALIA Hospital Course: Patient is a 74-year-old male who presented emergency room for dizziness and syncope. Vitals in the ER showed a blood pressure of 77/47. Hemoglobin 9.1, white blood cell count 5.6. BMP showed a KI and a creatinine of 2.3 and a lactic acid of 3.1. EKG showed paced rhythm. Patient was admitted to the hospitalist service and started on IV fluids and his creatinine and blood pressure improved. His pacemaker was interrogated which did not show any acute events according to nursing staff. The patient stated on admission that he had chest pain in this was worked up as stated above. The day of discharge the patient's creatinine was back to near his baseline 1.5 and was doing well. He was very adamant about going home. His blood pressure medications were adjusted as his ramipril was stopped. He is to follow-up with his cardiolog
--- NOTE | 2020-09-30 12:46 | PC.NURSE ---
Blood cx are negative.
== END 2020-09-26 15:03 | disposition home or self-care (01) ==
LOC: ANHED 17:00 → ANH2MED 18:43
PROVIDERS: Physician Assistant; Admitting Provider Family Medicine; Emergency Provider Emergency Medicine; PCP Family Medicine; Visit Provider Family Medicine
DX: R07.9 Chest pain, unspecified (principal); N17.9 Acute kidney failure, unspecified; R55 Syncope and collapse; D64.9 Anemia, unspecified; I35.0 Nonrheumatic aortic (valve) stenosis; I95.9 Hypotension, unspecified; I12.9 Hypertensive chronic kidney disease with stage 1 through stage 4 chronic kidney disease, or unspecified chronic kidney disease; E11.22 Type 2 diabetes mellitus with diabetic chronic kidney disease; I25.10 Atherosclerotic heart disease of native coronary artery without angina pectoris; N18.30 Chronic kidney disease, stage 3 unspecified; F03.90 Unspecified dementia, unspecified severity, without behavioral disturbance, psychotic disturbance, mood disturbance, and anxiety; I73.9 Peripheral vascular disease, unspecified; I25.118 Atherosclerotic heart disease of native coronary artery with other forms of angina pectoris; I48.91 Unspecified atrial fibrillation; E78.5 Hyperlipidemia, unspecified; R94.31 Abnormal electrocardiogram [ECG] [EKG]; N28.1 Cyst of kidney, acquired; G89.29 Other chronic pain; G31.9 Degenerative disease of nervous system, unspecified; Z95.0 Presence of cardiac pacemaker; Z79.899 Other long term (current) drug therapy; Z98.890 Other specified postprocedural states; Z98.1 Arthrodesis status; Z95.1 Presence of aortocoronary bypass graft; Z89.512 Acquired absence of left leg below knee; Z91.81 History of falling; Z79.84 Long term (current) use of oral hypoglycemic drugs; Z79.01 Long term (current) use of anticoagulants; Z79.82 Long term (current) use of aspirin; F17.220 Nicotine dependence, chewing tobacco, uncomplicated; Z66 Do not resuscitate
CPT/HCPCS: 36415; 70450; 71046; 71250; 74150; 80048; 80053; 81001; 83036; 83605; 83880; 84443; 84484; 85025; 85027; 85610; 85730; 86140; 86850; 86900; 86901; 87040; 93005; 96360; 96361; 97161; 97165; 97535; 99285; A9270; G0378; J7030

== ENCOUNTER 2020-12-29 13:25 | Inpatient (IN) | payer OTHER, SELFPAY ==
[2020-12-29] VITALS (14 sets, daily range): BP systolic 106–122; BP diastolic 59–83; PULSE 63–82; RESP 9–18; TEMP 36.1–36.4; O2SAT 96–100; BMI 21.8
--- NOTE | ~2020-12-29 | XR_ITS ---
XR chest 1V DATE: 12/29/2020 14:11 INDICATION: Weakness TECHNIQUE: AP chest COMPARISON: 09/24/2020 AP and lateral chest FINDINGS: Patchy left mid and bilateral lower lung infiltrates are present. No pleural effusion or pu lmonary vascular congestion or pneumothorax. Heart size. Left pacemaker device with right atrial and right ventricular leads. Status post sternoto my. Aortic calcification and unfolding. No hilar or mediastinal enlargement. Diffuse osteopenia. Surgical clips, right upper quadrant, consistent with cholecystectomy. IMPRESSION: Patchy left mid and bilateral lower lung infiltrates Reviewed, dictated and finalized at location [facility]. ENRICHMENT MANAGER
--- NOTE | ~2020-12-29 | CT_ITS ---
EXAMINATION: CT brain wo con DATE: 12/29/2020 14:07 INDICATION: Weakness, lethargy. Confusion. TECHNIQUE: Computed tomography (CT) of the head was performed without intravenous contrast. The mA wa s adjusted according to patient size. Iterative reconstruction technique was employed. Exam dose: 68 1.00 mGy-cm total exam DLP. COMPARISON: 09/24/[address] brain FINDINGS: Vertebrobasilar and internal carotid artery calcifications are noted. There is nonspecific diminished attenuation of the subcortical and periventricular cerebral white mat ter, likely due to chronic small vessel ischemic changes. There is an old focal small infarct high ov er the right parietal convexity. There is central and cortical cerebral and cerebellar atrophy. No intracranial mass lesion or hemorrhage, midline shift or mass effect or recent cerebrovascular acc ident is detected. No subdural or epidural hematoma is detected. No fracture or bone destruction of the cranial vault. Included paranasal sinuses and mastoid air cells are unremarkable except for some focal limited masto id opacification on the left which appears stable since 09/16/2020. IMPRESSION: No acute intracranial finding or significant change since 09/24/2020 Reviewed, dictated and finalized at [facility]. Reviewed, dictated and finalized at location [facility]. MAKER IMPRESSION: No acute intracranial finding or significant change since 09/24/20 20
--- NOTE | 2020-12-29 13:34 | ECG_ITS ---
Measurements Intervals [place] Rate: 63 P: 183 MT: 217 QRS: -40 QRSD: 183 T: 1 QT: 466 QTc: 479 Interpretive Statements ELECTRONIC ATRIAL PACEMAKER LEFT AXIS DEVIATION RIGHT BUNDLE BRANCH BLOCK BASELINE ARTIFACT- I, II, III, AVR, AVL, AVF, V1-V6 ABNORMAL ECG Electronically Signed On 12-29-2020 14:05:31 UTILITY PERSON by Yohan Kumari D.O.
[2020-12-29 13:51] LABS: Basophils Absolute Auto 0.1 K/mm3 (0.0-0.1); Basophils Percent Auto 1.4 % (0.2-1.2); Eosinophils Absolute Auto 0.3 K/mm3 (0-0.3); Eosinophils Percent Auto 4.7 % (0-4.4); Hematocrit 31.3 % (42.0-52.0); Hemoglobin 10.2 g/dL (14.0-18.0); Immature Granulocyte Absolute 0.02 K/mm3 (0.00-0.031); Immature Granulocyte Percent A 0.3 % (0-0.5); Lymphocytes Absolute Auto 1.74 K/mm3 (0.9-3.2); Lymphocytes Percent Auto 27.4 % (18.3-44.2); Mean Corpuscular HGB Conc 32.6 g/dl (32-36); Mean Corpuscular Volume 92.1 fl (80-100); Mean Platelet Volume 11.5 fl (7.4-10.4); Monocytes Absolute Auto 0.5 K/mm3 (0.1-0.6); Monocytes Percent Auto 7.5 % (2.6-8.5); Neutrophils Absolute Auto 3.7 K/mm3 (1.3-6.7); Neutrophils Percent Auto 58.7 % (45.5-73.1); Platelet Count Result 246 k/mm3 (150-375); Red Cell Distribution Width 13.9 % (11.5-14.5); White Blood Count 6.4 K/mm3 (4.5-10.0)
[2020-12-29 13:56] LABS: Add Urine Microscopic? YES; Appearance Urine Clear (Clear); Bacteria Urine Trace /hpf; Bilirubin Urine Negative (Negative); Blood Urine Negative (Negative); Color Urine Yellow (Yellow); Glucose Urine UA 1+ mg/dL (Negative); Ketones Urine Negative (Negative); Leukocyte Esterase Ur Negative LEU/UL (Negative); Nitrate Urine Negative (Negative); Protein Urine 1+ mg/dL (Negative); RBC Urine 0-2 /hpf (0-2); Specific Grav Ur 1.018 (1.001-1.035); Squamous Epithelial Cell Urine Occasional /hpf (Few); Urobilinogen Urine Negative mg/dL (<2.0); WBC Urine 0-3 /hpf
--- NOTE | 2020-12-29 14:34 | ED.WEAKNESS ---
HPI - Weakness General Chief complaint: Weakness Stated complaint: lethargic Time Seen by Provider: 12/29/20 13:34 Source: family and EMS Mode of arrival: EMS History of Present Illness HPI Narrative: 75 years old white male brought to the emergency room by ambulance with his was telling me that patient been lethargic over the last 2 to 3 days. Patient is DNR, usually uses a urinal for urination, wheelchair-bound, history of dementia. The denies that patient have any fever, chills, nausea, vomiting, diarrhea, abdominal pain, chest pain, headache. No history of Covid, no Covid exposure. Patient lives with his at home patient had similar symptoms recently secondary to dehydration, patient on Xarelto. Related Data Home Medications Medication Instructions Recorded Confirmed aspirin [Adult Low Dose Aspirin] 81 mg PO DAILY 10/24/19 09/24/20 polyethylene glycol 3350 [Miralax] 17 g PO PRN PRN 10/24/19 09/24/20 Xarelto 15 mg PO QPM 04/09/20 09/24/20 atorvastatin 40 mg PO QPM 04/09/20 09/24/20 metformin 500 mg PO BID 04/09/20 09/24/20 albuterol sulfate [Proventil HFA] 2 puff INHALATION PRN PRN 08/18/20 09/24/20 baclofen 5 mg PO PRN PRN 08/18/20 09/24/20 duloxetine 30 mg PO DAILY 08/18/20 09/24/20 nitroglycerin 0.4 mg SUBLINGUAL PRN PRN 08/18/20 09/24/20 tamsulosin 0.4 mg PO DAILY 08/18/20 09/24/20 isosorbide mononitrate 30 mg PO DAILY 09/24/20 09/24/20 morphine 30 mg PO BID 09/24/20 09/24/20 prednisolone acetate See Rx Instructions .ROUTE .COMPLEX 09/26/20 09/26/20 Allergies Allergy/AdvReac Type Severity Reaction Status Date / Time ibuprofen AdvReac Mild N/V Verified 09/25/20 05:46 Review of Systems Review of Systems: ROS unobtainable: Yes unobtainable due to mental status PMFSH Past Medical History Medical History Anemia Aortic stenosis Atrial fibrillation CAD (coronary artery disease) CKD (chronic kidney disease) stage 3, GFR 30-59 ml/min Dementia Diabetes mellitus Diabetic nephropathy Diabetic retinopathy HLD (hyperlipidemia) Hypertension Ischemia of left BKA site Osteoarthritis Pacemaker Peripheral vascular disease Phantom pain Surgical History Surgical History History of left below knee amputation Hx of appendectomy Hx of cardiac catheterization with stent placement Hx of cholecystectomy Hx of repair of right rotator cuff Hx of spinal surgery lumbar fusion Hx of tonsillectomy S/P CABG x 5 Family History Family History Mother Family history of thoracic aortic aneurysm Other Family history of arthritis Family history of coronary artery disease Social History Social History Social History: the patient is a DNR. 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 He lives with his . Smoking status: Never smoker Tobacco type: smokeless tobacco Smokeless tobacco user: chewing tobacco Second hand tobacco smoke exposure: No Additional smoking assessment comments: chews tobacco daily x 39 years, current user Alcohol intake: never Substance use: never Substance use type: does not use Gender identity (if verbalized by the patient): Male Spiritual care concerns: No Agree to blood products: No Exam Narrative: Exam Narrative: General appearance: Well-developed, well-nourished, lethargic, responds to painful stimulation and loud voice Skin: Normal color Head: Normocephalic, nontraumatic Eyes: Clear conjunctiva ENT: Oropharynx normal, ears normal, nose normal Neck: Supple, nontender Chest and respiratory: Airway patent, no respiratory distress, no accessory muscle use, diminution of air entry bilaterally mainly at the bases with with rales Heart: Regular rate/rhythm Abdomen: Soft, nontender, no organomegaly, quiet bowel sounds Vascu
[2020-12-29 15:07] LABS: Alanine Aminotransferase 15 U/L (4-50); Albumin Level 3.6 g/dL (3.5-5.1); Alkaline Phosphatase 178 U/L (38-126); Anion Gap 7 mmol/L (8-16); Aspartate Amino Transferase 21 U/L (17-59); Bilirubin,Total 0.5 mg/dL (0.2-1.3); Blood Urea Nitrogen 31 mg/dL (9-20); Calcium 9.7 mg/dL (8.4-10.2); Carbon Dioxide 24 mmol/L (22-30); Chloride 110 mmol/L (98-107); Estimated Glomerular Filt Rate 28; Glucose 165 mg/dL (75-110); Potassium 4.4 mmol/L (3.4-5.0); Sodium 141 mmol/L (137-145)
[2020-12-29] MEDS: SODIUM CHLORIDE 0.9% IV 500 ML 999 ML IV CONT (15:21)
--- NOTE | 2020-12-29 16:10 | ADMGEN ---
This patient, Mani Coronel, was admitted to [facility] Surg Room 311-01. Patient/family oriented to hospital policies and general routines including ID bracelet, bed and alarms, visiting hours, pain management, procedures, bathroom and other care routines, personal items, smoking policy, room service/diet, and visiting hours. Information on how to activate the Rapid Response Team has been discussed. Patient/Family are encouraged to report perceived risks to care and to ask questions if they do not understand what they are told or what they should do.
[2020-12-29] MEDS: SODIUM CHLORIDE 0.9% IV 1,000 ML 75 ML IV CONT (16:25)
--- NOTE | 2020-12-29 18:33 | PM.IMHP ---
H&P: HPI History of Present Illness Date/Time: 12/29/20 18:33 Chief Complaint: Altered mental status Narrative: Mani Coronel is a 75 year old male who has a history of dementia. The patient lives at home with his and she noticed that the patient was more lethargic than normal. 2-3 days. The patient is a DNR. The patient typically is wheelchair-bound and has a left below-knee amputation. The patient denied any fever, chills, no nausea, no vomiting, and no complaints of chest pain.Radiology is patchy left mild and bilateral lower lung infiltrates. His white count is normal and he is afebrile. The patient was swabbed for COVID-19. I reviewed the chest x-ray myself and also patchy infiltrates in the right lung left upper lobe as well. Patient was empirically started on a Zithromax and Rocephin. Patient has dry mucous membranes in appears to be dehydrated. 2.3 today previously and September 26 2020 his creatinine was 1.5. Has readings from 1.3 to 2.3 in the past. Initially when I assessed the patient he would not open his eyes. After few minutes he did wake up and was talking to me. He told me that he was very hungry and wanted to eat something and drink a diet Coke. Intracranial findings or significant change since 09/24/2020. The patient is orientated to himself. After reviewing my notes and my assessment from 09/24/2020 Patient appears to be orientated to person only. The patient was given IV fluids in the emergency room. Patient is being admitted to inpatient services on the date of 12/29/2020. Review of Systems Review of Systems: ROS unobtainable: Yes unobtainable due to mental status Constitutional: Constitutional: Reports as per HPI and Reports no additional constitutional complaints Eyes: Eyes: Reports as per HPI and Reports no additional eye complaints ENT: Reports system reviewed and no additional complaints, except as documented and Reports Normal hearing present Cardiovascular: Cardiovascular: Reports no additional cardiovascular complaints Respiratory: Respiratory: Reports no additional respiratory complaints and Reports no additional respiratory complaints Gastrointestinal: Gastrointestinal: Reports as per HPI and Reports no additional gastrointestinal complaints Musculoskeletal: Musculoskeletal: Reports no additional musculoskeletal complaints Integumentary/Breasts: Skin/Breast: Reports system reviewed and no additional complaints, except as docu and Reports as per HPI Neurologic: Reports system reviewed and no additional complaints, except as documented, Reports as per HPI and Reports Normal hearing present Psychiatric: Psychiatric: Reports no additional psychiatric complaints and Reports as per HPI Endocrine: Endocrine: Reports no additional endocrine complaints Hematologic/Lymphatic: Hematologic/Lymphatic: Reports no additional hematologic/lymphatic complaints Allergic/Immunologic: Allergic/Immunologic: Reports no additional allergic/immunologic complaints [facility] Past Medical History Medical History (Updated 12/29/20 @ 18:56 by Ester Resendiz NP) Anemia Aortic stenosis Atrial fibrillation CAD (coronary artery disease) CKD (chronic kidney disease) stage 3, GFR 30-59 ml/min Dementia Diabetes mellitus Diabetic nephropathy Diabetic retinopathy History of CVA (cerebrovascular accident) HLD (hyperlipidemia) Hypertension Ischemia of left BKA site Osteoarthritis Pacemaker Peripheral vascular disease Phantom pain Surgical History Surgical History History of left below knee amputation Hx of appendectomy Hx of cardiac catheterization with stent placement Hx of cholecystectomy Hx of repair of right rotator cuff Hx of spinal surgery lumbar fusion Hx of tonsillectomy S/P CABG x 5 Family History Family History Mother Family history of thoracic aortic aneurysm Other Family hist
[2020-12-29] MEDS: PREGABALIN (*CRX) 50 MG CAPSULE PO (18:53)
[2020-12-29] MEDS: ASPIRIN 81 MG ENTERIC TABLET PO (20:15)
[2020-12-29] MEDS: MELATONIN 5 MG TABLET PO (20:15)
[2020-12-29] MEDS: RIVAROXABAN 15 MG TABLET PO (20:15)
[2020-12-29] MEDS: DONEPEZIL HCL 5 MG TABLET PO (20:15)
[2020-12-29 20:41] LABS: Hemoglobin A1C 8.3 % (<5.7)
[2020-12-29] MEDS: ALBUTEROL SULFATE (*SP) AEROSOL 1 PUFF 2 PUFF INHALATION (21:53)
[2020-12-29 22:01] LABS: Glucose Point of Care 201 (65-105)
[2020-12-30] VITALS (8 sets, daily range): BP systolic 124–169; BP diastolic 58–76; PULSE 40–105; RESP 12–18; TEMP 36.1–36.7; O2SAT 97–100
[2020-12-30] MEDS: ALBUTEROL SULFATE (*SP) AEROSOL 1 PUFF 2 PUFF INHALATION ×4 (02:59→21:40)
[2020-12-30] MEDS: SODIUM CHLORIDE 0.9% IV 1,000 ML 75 ML IV CONT (06:05)
[2020-12-30 06:18] LABS: Anion Gap 6 mmol/L (8-16); Blood Urea Nitrogen 25 mg/dL (9-20); Calcium 9.1 mg/dL (8.4-10.2); Carbon Dioxide 22 mmol/L (22-30); Chloride 113 mmol/L (98-107); Estimated CRCL calculation 34 ml/min; Estimated Glomerular Filt Rate 37; Glucose 130 mg/dL (75-110); Potassium 3.8 mmol/L (3.4-5.0); Sodium 141 mmol/L (137-145)
[2020-12-30 08:45] LABS: Glucose Point of Care 135 (65-105)
[2020-12-30] MEDS: MEMANTINE 10 MG TABLET PO (09:16)
[2020-12-30] MEDS: PREGABALIN (*CRX) 50 MG CAPSULE PO ×2 (09:16→17:16)
[2020-12-30] MEDS: DULoxetine HCL 30 MG CAPSULE.DR PO (09:16)
[2020-12-30] MEDS: TAMSULOSIN HCL 0.4 MG CAPSULE PO (09:16)
[2020-12-30] MEDS: PANTOPRAZOLE 40 MG TABLET PO (09:16)
[2020-12-30 11:58] LABS: Glucose Point of Care 159 (65-105)
--- NOTE | 2020-12-30 13:42 | PM.IMPN ---
Progress Note: A&P Assessment and Plan (1) Community acquired pneumonia: Code(s): J18.9 - Pneumonia, unspecified organism Status: Acute Assessment and Plan: CXR shows patchy left mid in bilateral lower lung infiltrates. He does not indicate any respiratory symptoms, however is a poor historian. He is afebrile. No leukocytosis. He is maintaining adequate oxygen saturations on room air. Continue IV Rocephin and azithromycin at this time. Check influenza check urinary pneumococcal and Legionella antigens Blood cultures pending Will order sputum culture, however unsure if patient is having sputum production and doubt he would be able to collect specimen. supportive care to include bronchodilators, expectorants, and antipyretics supplemental O2 as needed with goal saturation 90% or above. (2) Suspected COVID-19 virus infection: Code(s): Z20.822 - Contact with and (suspected) exposure to COVID-19 Status: Acute Assessment and Plan: He is being tested for COVID-19. Unable to indicate if he has known COVID-19 positive contacts. Continue isolation precautions COVID-19 test is pending and will await results At this time, no need for antivirals or steroid medication as patient is maintaining adequate O2 sats on room air.\ Supportive care and plan as above (3) Acute kidney injury superimposed on chronic kidney disease: Code(s): N17.9 - Acute kidney failure, unspecified; N18.9 - Chronic kidney disease, unspecified Status: Acute Assessment and Plan: review of prior labs demonstrates baseline 1.5 -1.6. Creatinine was elevated at 2.3 upon presentation. His noted poor p.o. intake, so suspect acute insufficiency is secondary to dehydration. Creatinine has improved with IV fluids. Continue gentle IV fluids at this time given kidney improved. Cautious use with fluids in light of respiratory illness. monitor renal function closely. Renally dose medications and avoid nephrotoxic agents. (4) Dementia: Code(s): F03.90 - Unspecified dementia without behavioral disturbance Status: Acute Assessment and Plan: patient A&O x3, however does exhibit confusion in conversation. notes that this has progressed recently but believes that he is at his new baseline. Continue donepezil and memantine (5) Altered mental status: Qualifiers: Altered mental status type: unspecified Qualified Code(s): R41.82 - Altered mental status, unspecified Code(s): R41.82 - Altered mental status, unspecified Status: Acute Assessment and Plan: patient's had concerns reporting that the patient had been slumped in his chair, extremely drowsy, and not wanting to eat or drink at home. She was concerned that he had a stroke. He does have a history of CVA. Head CT upon arrival showed no acute findings. Urinalysis was normal. suspect patient has worsening of his dementia, as well as acute dehydration. Seems to be improving per reports from of patients behavior prior to admission. monitor mental status closely. Baclofen held to ensure not contributing to confusion continue gentle IV hydration as above (6) Anemia: Qualifiers: Anemia type: unspecified type Qualified Code(s): D64.9 - Anemia, unspecified Code(s): D64.9 - Anemia, unspecified Status: Acute Assessment and Plan: hemoglobin on presentation actually improved from baseline, which appears to be 9.5-10.0. Suspect anemia of chronic disease in light of renal insufficiency. Vital signs are stable and he has no signs of active bleeding at this time. Monitor H&H closely and transfuse as needed with hemoglobin threshold <7.0 (7) Diabetes mellitus: Code(s): E11.9 - Type 2 diabetes mellitus without complications Status: Acute Assessment and Plan: A1c is 8.3. Blood sugars evaluated tod
[2020-12-30 17:09] LABS: Glucose Point of Care 192 (65-105)
[2020-12-30] MEDS: RIVAROXABAN 15 MG TABLET PO (17:16)
[2020-12-30] MEDS: ASPIRIN 81 MG ENTERIC TABLET PO (17:16)
[2020-12-30 19:17] LABS: SARS-CoV-2 RNA PCR Negative
[2020-12-30] MEDS: guaiFENesin 12 HR 600 MG TABCR PO (21:45)
[2020-12-30] MEDS: DONEPEZIL HCL 5 MG TABLET PO (21:45)
[2020-12-30] MEDS: MELATONIN 5 MG TABLET PO (21:45)
[2020-12-30 22:15] LABS: Glucose Point of Care 176 (65-105)
[2020-12-31 04:00] VITALS: BP 183/86; PULSE 80; RESP 16; TEMP 36.2; O2SAT 98
[2020-12-31] MEDS: SODIUM CHLORIDE 0.9% IV 1,000 ML 75 ML IV CONT (04:32)
[2020-12-31] MEDS: ALBUTEROL SULFATE (*SP) AEROSOL 1 PUFF 2 PUFF INHALATION ×4 (04:39→20:23)
[2020-12-31 06:18] LABS: Hematocrit 29.4 % (42.0-52.0); Mean Corpuscular Hemoglobin 29.6 pg (26-34); Mean Platelet Volume 11.2 fl (7.4-10.4); Platelet Count Result 261 k/mm3 (150-375); Red Blood Count 3.38 M/mm3 (4.6-6.20); Red Cell Distribution Width 13.2 % (11.5-14.5); White Blood Count 6.3 K/mm3 (4.5-10.0)
[2020-12-31 06:29] LABS: Anion Gap 7 mmol/L (8-16); Blood Urea Nitrogen 20 mg/dL (9-20); Calcium 9.2 mg/dL (8.4-10.2); Carbon Dioxide 24 mmol/L (22-30); Chloride 107 mmol/L (98-107); Estimated CRCL calculation 40 ml/min; Estimated Glomerular Filt Rate 46; Glucose 198 mg/dL (75-110); Potassium 3.8 mmol/L (3.4-5.0); Sodium 138 mmol/L (137-145)
[2020-12-31 08:34] LABS: Glucose Point of Care 315 (65-105)
[2020-12-31] MEDS: PANTOPRAZOLE 40 MG TABLET PO (09:13)
[2020-12-31] MEDS: guaiFENesin 12 HR 600 MG TABCR PO ×2 (09:13→20:14)
[2020-12-31] MEDS: MEMANTINE 10 MG TABLET PO (09:13)
[2020-12-31] MEDS: TAMSULOSIN HCL 0.4 MG CAPSULE PO (09:13)
[2020-12-31] MEDS: DULoxetine HCL 30 MG CAPSULE.DR PO (09:13)
[2020-12-31] MEDS: PREGABALIN (*CRX) 50 MG CAPSULE PO ×2 (09:15→17:15)
[2020-12-31] MEDS: INSULIN ASPART (*BKC) 100 UNITS/ML SUB-Q (09:16)
[2020-12-31 12:39] LABS: Glucose Point of Care 156 (65-105)
[2020-12-31 14:47] VITALS: BP 116/52; PULSE 63; RESP 16; TEMP 36.1; O2SAT 99
--- NOTE | 2020-12-31 16:02 | PM.IMPN ---
Progress Note: A&P Assessment and Plan (1) Community acquired pneumonia: Code(s): J18.9 - Pneumonia, unspecified organism Status: Acute Assessment and Plan: CXR shows patchy left mid and bilateral lower lung infiltrates. He is afebrile. No leukocytosis. He is maintaining adequate oxygen saturations on room air. Covid negative. Prelim blood cultures show NGTD. Continue IV Rocephin and azithromycin at this time. Check influenza; ordered on 12/30 but uncollected. Will order sputum culture, however unsure if patient is having sputum production and doubt he would be able to collect specimen. supportive care to include bronchodilators, expectorants, and antipyretics supplemental O2 as needed with goal saturation 90% or above. (2) Acute kidney injury superimposed on chronic kidney disease: Code(s): N17.9 - Acute kidney failure, unspecified; N18.9 - Chronic kidney disease, unspecified Status: Acute Assessment and Plan: Review of prior labs demonstrates baseline 1.5 -1.6. Creatinine was elevated at 2.3 upon presentation. His noted poor p.o. intake, so suspect acute insufficiency is secondary to dehydration. Creatinine has improved with IV fluids and is at baseline discontinue IV fluids. Patient has been adequately rehydrated and is tolerating p.o. intake. monitor renal function closely. Renally dose medications and avoid nephrotoxic agents. (3) Dementia: Code(s): F03.90 - Unspecified dementia without behavioral disturbance Status: Acute Assessment and Plan: patient A&O x4. He does exhibit some confusion in conversation but does seem improved compared to my initial exam yesterday. notes that this has progressed recently but believes that he is at his new baseline. Continue donepezil and memantine (4) Altered mental status: Qualifiers: Altered mental status type: unspecified Qualified Code(s): R41.82 - Altered mental status, unspecified Code(s): R41.82 - Altered mental status, unspecified Status: Acute Assessment and Plan: patient's had concerns reporting that the patient had been slumped in his chair, extremely drowsy, and not wanting to eat or drink at home. She was concerned that he had a stroke. He does have a history of CVA. Head CT upon arrival showed no acute findings. Urinalysis was normal. suspect patient has worsening of his dementia, as well as acute dehydration. Overall, his mental status has improved significantly. He is answering all questions appropriately today. P.o. intake is still poor. monitor mental status closely. Baclofen held to ensure not contributing to confusion Encourage p.o. intake (5) Anemia: Qualifiers: Anemia type: unspecified type Qualified Code(s): D64.9 - Anemia, unspecified Code(s): D64.9 - Anemia, unspecified Status: Acute Assessment and Plan: hemoglobin on presentation actually improved from baseline, which appears to be 9.5-10.0. Suspect anemia of chronic disease in light of renal insufficiency. Vital signs are stable and he has no signs of active bleeding at this time. Monitor H&H closely and transfuse as needed with hemoglobin threshold <7.0 (6) Diabetes mellitus: Code(s): E11.9 - Type 2 diabetes mellitus without complications Status: Acute Assessment and Plan: A1c is 8.3. Blood sugars evaluated today and are elevated above target. Continue Accu-Cheks ACHS, SSI, hypoglycemic protocol hold metformin in light of NATALIA monitor blood sugar trends closely Will add 15 units lantus qHS (7) Atrial fibrillation: Code(s): I48.91 - Unspecified atrial fibrillation Status: Chronic Assessment and Plan: The patient has a pacemaker and is the patient is currently in sinus rhythm and paced. he does not appear to be on any medications for rate or rhythm control. Co
[2020-12-31] MEDS: ASPIRIN 81 MG ENTERIC TABLET PO (17:15)
[2020-12-31] MEDS: RIVAROXABAN 15 MG TABLET PO (17:26)
[2020-12-31 17:30] LABS: Glucose Point of Care 174 (65-105)
[2020-12-31 19:50] VITALS: PULSE 78; RESP 14; O2SAT 98
[2020-12-31] MEDS: MELATONIN 5 MG TABLET PO (20:14)
[2020-12-31] MEDS: DONEPEZIL HCL 5 MG TABLET PO (20:14)
[2020-12-31] MEDS: INSULIN GLARGINE (*BKC) 100 UNITS/ML 15 UNITS SUB-Q (20:22)
[2020-12-31 20:55] LABS: Glucose Point of Care 281 (65-105)
[2020-12-31 22:00] VITALS: BP 109/59; PULSE 76; RESP 14; TEMP 36.4; O2SAT 98
[2021-01-01] MEDS: SODIUM CHLORIDE 0.9% IV 1,000 ML 75 ML IV CONT ×2 (02:04→16:42)
[2021-01-01] MEDS: ALBUTEROL SULFATE (*SP) AEROSOL 1 PUFF 2 PUFF INHALATION ×4 (02:05→20:49)
[2021-01-01 05:21] VITALS: BP 156/71; PULSE 62; RESP 16; TEMP 36.3; O2SAT 98
[2021-01-01 06:20] LABS: Hematocrit 27.9 % (42.0-52.0); Hemoglobin 9.5 g/dL (14.0-18.0); Mean Corpuscular HGB Conc 34.1 g/dl (32-36); Mean Corpuscular Hemoglobin 29.5 pg (26-34); Mean Corpuscular Volume 86.6 fl (80-100); Mean Platelet Volume 10.9 fl (7.4-10.4); Platelet Count Result 272 k/mm3 (150-375); Red Blood Count 3.22 M/mm3 (4.6-6.20); Red Cell Distribution Width 13.3 % (11.5-14.5); White Blood Count 8.1 K/mm3 (4.5-10.0)
[2021-01-01 06:32] LABS: Anion Gap 6 mmol/L (8-16); Blood Urea Nitrogen 18 mg/dL (9-20); Calcium 9.3 mg/dL (8.4-10.2); Carbon Dioxide 24 mmol/L (22-30); Chloride 108 mmol/L (98-107); Estimated CRCL calculation 46 ml/min; Estimated Glomerular Filt Rate 54; Glucose 78 mg/dL (75-110); Potassium 3.4 mmol/L (3.4-5.0); Sodium 138 mmol/L (137-145)
[2021-01-01 08:29] LABS: Glucose Point of Care 73 (65-105)
[2021-01-01] MEDS: DULoxetine HCL 30 MG CAPSULE.DR PO (09:08)
[2021-01-01] MEDS: guaiFENesin 12 HR 600 MG TABCR PO ×2 (09:08→20:48)
[2021-01-01] MEDS: TAMSULOSIN HCL 0.4 MG CAPSULE PO (09:08)
[2021-01-01] MEDS: MEMANTINE 10 MG TABLET PO (09:08)
[2021-01-01] MEDS: PANTOPRAZOLE 40 MG TABLET PO (09:08)
[2021-01-01] MEDS: PREGABALIN (*CRX) 50 MG CAPSULE PO ×2 (09:09→17:38)
[2021-01-01 11:53] LABS: Glucose Point of Care 270 (65-105)
[2021-01-01] MEDS: INSULIN ASPART (*BKC) 100 UNITS/ML SUB-Q (11:53)
[2021-01-01 14:00] VITALS: BP 154/71; PULSE 67; RESP 20; TEMP 36.3; O2SAT 99
--- NOTE | 2021-01-01 14:26 | PM.IMPN ---
Progress Note: A&P Assessment and Plan (1) Community acquired pneumonia: Code(s): J18.9 - Pneumonia, unspecified organism Status: Acute Assessment and Plan: CXR shows patchy left mid and bilateral lower lung infiltrates. He is afebrile. No leukocytosis. He is maintaining adequate oxygen saturations on room air. Covid negative. Prelim blood cultures show NGTD. Continue IV Rocephin and azithromycin, started on 12/29/20 Check influenza; ordered on 12/30 but uncollected. sputum culture ordered however patient is not having any sputum production therefore on collected supportive care to include bronchodilators, expectorants, and antipyretics supplemental O2 as needed with goal saturation 90% or above. (2) Acute kidney injury superimposed on chronic kidney disease: Code(s): N17.9 - Acute kidney failure, unspecified; N18.9 - Chronic kidney disease, unspecified Status: Acute Assessment and Plan: Review of prior labs demonstrates baseline 1.5 -1.6. Creatinine was elevated at 2.3 upon presentation. His noted poor p.o. intake, so suspect acute insufficiency is secondary to dehydration. Creatinine has improved with IV fluids and is actually improved from his baseline at 1.3 IV fluids discontinued. Patient has been adequately rehydrated and is tolerating p.o. intake. monitor renal function closely. Renally dose medications and avoid nephrotoxic agents. (3) Dementia: Code(s): F03.90 - Unspecified dementia without behavioral disturbance Status: Acute Assessment and Plan: patient A&O x4. He does exhibit some confusion in conversation but seems improved compared to my initial exam yesterday. notes that this has progressed recently but believes that he is at his new baseline. Continue donepezil and memantine (4) Altered mental status: Qualifiers: Altered mental status type: unspecified Qualified Code(s): R41.82 - Altered mental status, unspecified Code(s): R41.82 - Altered mental status, unspecified Status: Acute Assessment and Plan: patient's had concerns reporting that the patient had been slumped in his chair, extremely drowsy, and not wanting to eat or drink at home. She was concerned that he had a stroke. He does have a history of CVA. Head CT upon arrival showed no acute findings. Urinalysis was normal. suspect patient has worsening of his dementia, as well as acute dehydration. Overall, his mental status has improved significantly. He is answering all questions appropriately today. P.o. intake has improved monitor mental status closely. Baclofen held to ensure not contributing to confusion Encourage p.o. intake (5) Anemia: Qualifiers: Anemia type: unspecified type Qualified Code(s): D64.9 - Anemia, unspecified Code(s): D64.9 - Anemia, unspecified Status: Acute Assessment and Plan: Hemoglobin on presentation actually improved from baseline, which appears to be 9.5-10.0. Suspect anemia of chronic disease in light of kidney disease. Vital signs are stable and he has no signs of active bleeding at this time. H&H remaining stable and consistent with baseline Monitor H&H closely and transfuse as needed with hemoglobin threshold <7.0 (6) Diabetes mellitus: Code(s): E11.9 - Type 2 diabetes mellitus without complications Status: Acute Assessment and Plan: A1c is 8.3. Blood sugars evaluated today and fasting blood sugar signficantly improved. Repeat glucose at lunch time elevated above target. Continue Accu-Cheks ACHS, SSI, hypoglycemic protocol hold metformin in light of NATALIA monitor blood sugar trends closely Continue 15 units lantus qHS (7) Atrial fibrillation: Code(s): I48.91 - Unspecified atrial fibrillation Status: Chronic Assessment and Plan: He has a pacemaker and is currently in sinus rhythm. H
[2021-01-01] MEDS: ASPIRIN 81 MG ENTERIC TABLET PO (17:37)
[2021-01-01] MEDS: RIVAROXABAN 15 MG TABLET PO (17:38)
[2021-01-01] MEDS: MORPHINE SULFATE (*CRX) 30 MG TABCR PO (18:36)
[2021-01-01] MEDS: DONEPEZIL HCL 5 MG TABLET PO (20:44)
[2021-01-01] MEDS: MELATONIN 5 MG TABLET PO (20:48)
[2021-01-01] MEDS: INSULIN GLARGINE (*BKC) 100 UNITS/ML 15 UNITS SUB-Q (20:51)
[2021-01-01 21:13] LABS: Influenza Control Positive
[2021-01-01 21:28] LABS: Glucose Point of Care 197 (65-105)
[2021-01-01 22:00] VITALS: BP 168/86; PULSE 59; RESP 20; TEMP 37.6; O2SAT 97
[2021-01-02 00:21] LABS: Glucose Point of Care 158 (65-105)
[2021-01-02] MEDS: ALBUTEROL SULFATE (*SP) AEROSOL 1 PUFF 2 PUFF INHALATION ×3 (03:03→13:32)
[2021-01-02] MEDS: SODIUM CHLORIDE 0.9% IV 1,000 ML 75 ML IV CONT (05:33)
[2021-01-02 06:00] VITALS: BP 134/63; PULSE 60; RESP 18; TEMP 36.4; O2SAT 98
[2021-01-02 08:29] LABS: Glucose Point of Care 47 (65-105)
[2021-01-02] MEDS: DEXTROSE 50% 25 GM/50 ML SYRINGE IV PUSH (08:29)
[2021-01-02] MEDS: guaiFENesin 12 HR 600 MG TABCR PO (08:32)
[2021-01-02] MEDS: MEMANTINE 10 MG TABLET PO (08:32)
[2021-01-02] MEDS: PANTOPRAZOLE 40 MG TABLET PO (08:32)
[2021-01-02] MEDS: TAMSULOSIN HCL 0.4 MG CAPSULE PO (08:32)
[2021-01-02] MEDS: MORPHINE SULFATE (*CRX) 30 MG TABCR PO (08:33)
[2021-01-02] MEDS: PREGABALIN (*CRX) 50 MG CAPSULE PO (08:38)
[2021-01-02 08:56] LABS: Glucose Point of Care 73 (65-105)
[2021-01-02 10:00] LABS: Glucose Point of Care 130 (65-105)
[2021-01-02 12:00] LABS: Glucose Point of Care 149 (65-105)
[2021-01-02] MEDS: DULoxetine HCL 30 MG CAPSULE.DR PO (12:41)
[2021-01-02 14:00] VITALS: BP 122/55; PULSE 64; RESP 16; TEMP 36.9; O2SAT 100
--- NOTE | 2021-01-02 14:57 | PM.DS ---
DS: Admitting Diagnosis Admitting Diagnosis Admitting Diagnosis: community-acquired pneumonia DS: Discharge Diagnosis Discharge Diagnosis (1) Community acquired pneumonia: Code(s): J18.9 - Pneumonia, unspecified organism Status: Acute Assessment and Plan: CXR showed patchy left mid and bilateral lower lung infiltrates. He remained afebrile and without leukocytosis. He maintained adequate oxygen saturations on room air. Covid negative. Influenza negative. Preliminary blood cultures showed NGTD and final cultures will be monitored. he was treated with IV Rocephin and azithromycin. He completed 5 days of azithromycin and will continue p.o. cefdinir to complete a total of 7 days of antibiotic therapy. Supportive care provided including bronchodilators and expectorants. (2) Acute kidney injury superimposed on chronic kidney disease: Code(s): N17.9 - Acute kidney failure, unspecified; N18.9 - Chronic kidney disease, unspecified Status: Acute Assessment and Plan: Review of prior labs demonstrates baseline 1.5 -1.6. Creatinine was elevated at 2.3 upon presentation. His noted poor p.o. intake, so suspect acute insufficiency is secondary to dehydration. Creatinine improved back to baseline with IV fluid rehydration. (3) Altered mental status: Qualifiers: Altered mental status type: unspecified Qualified Code(s): R41.82 - Altered mental status, unspecified Code(s): R41.82 - Altered mental status, unspecified Status: Acute Assessment and Plan: He presented with complaints of lethargy x3 days. Patient's had concerns reporting that the patient had been slumped in his chair, extremely drowsy, and not wanting to eat or drink at home. She was concerned that he had a stroke. He does have a history of CVA. Head CT upon arrival showed no acute findings. Urinalysis was normal. Suspect his altered mental status was related to acute dehydration secondary to underlying respiratory infection and poor p.o. intake. He received IV antibiotics and was rehydrated with IV fluids. His mental status improved significantly and he did not seem to exhibit suspect patient has worsening of his dementia, as well as acute dehydration. Overall, his mental status has improved significantly and he was felt to be back to baseline. (4) Dementia: Code(s): F03.90 - Unspecified dementia without behavioral disturbance Status: Acute Assessment and Plan: Patient A&O x4. I spoke with his who believes that his dementia is becoming more progressive, however she believes that he is at his new baseline. Continue donepezil and memantine (5) Anemia: Qualifiers: Anemia type: unspecified type Qualified Code(s): D64.9 - Anemia, unspecified Code(s): D64.9 - Anemia, unspecified Status: Acute Assessment and Plan: On review of prior labs, appears chronic and baseline appears to be 9.5-10.0. Suspect anemia of chronic disease in light of kidney disease. Vital signs are stable and he had no signs of active bleeding. H&H remained stable and consistent with baseline (6) Diabetes mellitus: Code(s): E11.9 - Type 2 diabetes mellitus without complications Status: Acute Assessment and Plan: A1c is 8.3. blood sugars initially elevated above target, as high as 315. Because of this, he was started on Lantus, in addition to sliding scale insulin. His metformin was held in light of NATALIA. His blood sugar control improved, and then he developed episode of hypoglycemia on 01/02/2021. Likely secondary to addition of Lantus in combination with decreased p.o. intake. Blood sugars improved following this. He will continue with metformin. He has been instructed to monitor his blood sugars t.i.d. with meals and at bedtime and record these For further evaluation by PCP and medication adjustment as necessary. (7) Atrial fibrillation:
--- NOTE | 2021-01-03 10:51 | PC.NURSE ---
01/03/21 Spoke with , Juanis, for the post discharge phone call. She asked if it was okay for the patient to receive his scheduled COVID vaccine. I spoke with TREY Belcher and she stated that it would be okay for the patient to receive the COVID vaccine.
== END 2021-01-02 15:40 | disposition home health service (06) | DRG 194 ==
LOC: ANHED 14:19 → ANH3MEDSUR 15:18
PROVIDERS: Emergency Medicine; Nurse Practitioner; Admitting Provider Family Medicine; Emergency Provider Emergency Medicine; PCP Family Medicine; Visit Provider Physician Assistant
DX: J18.9 Pneumonia, unspecified organism (principal); N17.9 Acute kidney failure, unspecified; I48.20 Chronic atrial fibrillation, unspecified; E11.22 Type 2 diabetes mellitus with diabetic chronic kidney disease; I12.9 Hypertensive chronic kidney disease with stage 1 through stage 4 chronic kidney disease, or unspecified chronic kidney disease; N18.30 Chronic kidney disease, stage 3 unspecified; D63.1 Anemia in chronic kidney disease; E11.319 Type 2 diabetes mellitus with unspecified diabetic retinopathy without macular edema; E11.21 Type 2 diabetes mellitus with diabetic nephropathy; E11.51 Type 2 diabetes mellitus with diabetic peripheral angiopathy without gangrene; F03.90 Unspecified dementia, unspecified severity, without behavioral disturbance, psychotic disturbance, mood disturbance, and anxiety; Z20.822 Contact with and (suspected) exposure to COVID-19; Z66 Do not resuscitate; I25.10 Atherosclerotic heart disease of native coronary artery without angina pectoris; E78.5 Hyperlipidemia, unspecified; M19.90 Unspecified osteoarthritis, unspecified site; I35.0 Nonrheumatic aortic (valve) stenosis; E86.0 Dehydration; Z79.01 Long term (current) use of anticoagulants; Z95.0 Presence of cardiac pacemaker; Z99.3 Dependence on wheelchair; Z89.512 Acquired absence of left leg below knee; Z90.49 Acquired absence of other specified parts of digestive tract; Z95.5 Presence of coronary angioplasty implant and graft; Z98.1 Arthrodesis status; Z95.1 Presence of aortocoronary bypass graft; F17.220 Nicotine dependence, chewing tobacco, uncomplicated; Z86.73 Personal history of transient ischemic attack (TIA), and cerebral infarction without residual deficits
CPT/HCPCS: 36415; 51701; 70450; 71045; 80048; 80053; 81001; 82948; 83036; 83605; 85025; 85027; 87040; 87804; 93005; 94640; 97110; 97116; 97161; 97165; 97530; 99285; A9270; C9803; J0456; J0696; J1815; J7030; J7040; U0003; U0005

== ENCOUNTER 2021-01-07 16:36 | Observation (INO) | payer OTHER, SELFPAY ==
[2021-01-07] VITALS (24 sets, daily range): BP systolic 104–159; BP diastolic 44–112; PULSE 60–81; RESP 0–18; TEMP 36.1–37.1; O2SAT 95–100; BMI 25.1
--- NOTE | ~2021-01-07 | CT_ITS ---
EXAMINATION: CT brain wo con DATE: 01/07/2021 18:30 INDICATION: Altered mental status TECHNIQUE: Computed tomography (CT) of the head was performed without intravenous contrast. Sagittal and coronal reconstructions were performed. The mA was adjusted according to patient size. Iterative reconstruction technique was employed. The dose-length product was 605.33 mGy-cm. COMPARISON: head CT dated 12/29/2020 FINDINGS: Small focus of encephalomalacia in the posterior right frontal lobe consistent with chronic infarct. Additional small old lacunar infarct at the anterior limb of the left internal capsule. There is mode rate scattered white matter hypoattenuation consistent with chronic small vessel ischemic disease. No acute intracranial hemorrhage, acute infarction or abnormal extra axial fluid collection. Symmetric prominence of the sulci and and subarachnoid spaces overlying the convexities consistent with moderat e age-appropriate diffuse cerebral volume loss. Ventricles are normal and symmetric. No mass/mass ef fect. Changes of left intraocular lens replacement. The paranasal sinuses are normal. Chronic small b ilateral mastoid effusions. Intracranial calcified cerebral atherosclerosis is noted. IMPRESSION: 1. No acute intracranial process. 2. Small old infarcts in the posterior right frontal lobe and at the anterior limb of the left commissioner of internal revenue al capsule. 3. Age-related changes including moderate diffuse volume loss and moderate scattered white matter hyp oattenuation consistent with chronic small vessel ischemic disease. Reviewed, dictated and finalized at location A. COVER MAKER IMPRESSION: 1. No acute intracranial process. 2. Small old infarcts in the posterior right frontal lobe and at the anterior l imb of the left internal capsule. 3. Age-related changes including moderate diffuse volume loss and moderate scat tered white matter hypoattenuation consistent with chronic small vessel ischemi c disease.
--- NOTE | ~2021-01-07 | XR_ITS ---
EXAMINATION: XR chest 1V portable DATE: 01/07/2021 17:47 INDICATION: Transient alteration of awareness TECHNIQUE: frontal view of the chest was obtained. COMPARISON: Chest radiograph dated 12/29/2020 FINDINGS: Chronic mild elevation of the right hemidiaphragm. Significant improvement in now minimal opacities i n the bilateral lower lung zones. No pulmonary edema, pleural effusion or pneumothorax. Cardiomediast inal silhouette is normal. Median sternotomy wires and mediastinal surgical clips are seen, likely fr om prior coronary artery bypass grafting. Dual lead pacemaker seen with leads projecting over the exp ected locations of the right atrium and right ventricle. A few additional surgical clips project over the left midlung zone. Cystectomy clips in right upper quadrant. Visualized bones and soft tissues a re unremarkable. Old healed right rib and bilateral clavicle fractures. IMPRESSION: 1. Significant decrease in now minimal streaky opacities at the bilateral lower lung zones and favor atelectasis over pneumonia. Reviewed, dictated and finalized at location A. [facility]
--- NOTE | 2021-01-07 17:01 | ECG_ITS ---
Measurements Intervals [place] Rate: 62 P: 174 MT: 217 QRS: -40 QRSD: 164 T: 1 QT: 460 QTc: 468 Interpretive Statements ELECTRONIC ATRIAL PACEMAKER LEFT AXIS DEVIATION RIGHT BUNDLE BRANCH BLOCK BASELINE WANDER- I, II ABNORMAL ECG Electronically Signed On 01-07-2021 19:43:10 MUSEUM DOCENT by Yohan Kumari D.O.
--- NOTE | 2021-01-07 17:15 | PC.NURSE ---
Pt combative, not cooperating, not letting this RN draw blood. Holding arm and stating No youre not getting my blood
--- NOTE | 2021-01-07 17:20 | PC.NURSE ---
4 staff members holding pt down to access IV, pt attempting to hit, kick and spit.
[2021-01-07 17:34] LABS: Basophils Absolute Auto 0.1 K/mm3 (0.0-0.1); Basophils Percent Auto 1.2 % (0.2-1.2); Eosinophils Absolute Auto 0.5 K/mm3 (0-0.3); Hematocrit 31.5 % (42.0-52.0); Hemoglobin 10.1 g/dL (14.0-18.0); Immature Granulocyte Absolute 0.04 K/mm3 (0.00-0.031); Immature Granulocyte Percent A 0.4 % (0-0.5); Lymphocytes Percent Auto 20.8 % (18.3-44.2); Mean Corpuscular HGB Conc 32.1 g/dl (32-36); Mean Corpuscular Hemoglobin 29.6 pg (26-34); Mean Corpuscular Volume 92.4 fl (80-100); Mean Platelet Volume 10.9 fl (7.4-10.4); Monocytes Absolute Auto 0.4 K/mm3 (0.1-0.6); Monocytes Percent Auto 4.7 % (2.6-8.5); Neutrophils Absolute Auto 6.2 K/mm3 (1.3-6.7); Neutrophils Percent Auto 67.9 % (45.5-73.1); Platelet Count Result 359 k/mm3 (150-375); Red Blood Count 3.41 M/mm3 (4.6-6.20); Red Cell Distribution Width 13.6 % (11.5-14.5); White Blood Count 9.1 K/mm3 (4.5-10.0)
[2021-01-07] MEDS: SODIUM CHLORIDE 0.9% IV 1,000 ML 999 ML IV CONT ×2 (17:43→19:44)
[2021-01-07] MEDS: LORazepam INJ (*CRX) 2 MG/ML VIAL IV PUSH (17:43)
[2021-01-07 17:44] LABS: Lactic Acid Reflex 2.4 mmol/L (0.7-2.1)
[2021-01-07 17:45] LABS: Alanine Aminotransferase 14 U/L (4-50); Albumin Level 3.6 g/dL (3.5-5.1); Alkaline Phosphatase 146 U/L (38-126); Anion Gap 11 mmol/L (8-16); Aspartate Amino Transferase 29 U/L (17-59); Bilirubin,Total 0.5 mg/dL (0.2-1.3); Blood Urea Nitrogen 34 mg/dL (9-20); Calcium 9.7 mg/dL (8.4-10.2); Carbon Dioxide 23 mmol/L (22-30); Chloride 111 mmol/L (98-107); Estimated CRCL calculation 25 ml/min; Estimated Glomerular Filt Rate 25; Glucose 140 mg/dL (75-110); Sodium 145 mmol/L (137-145)
[2021-01-07 17:55] LABS: Prothrombin Time 13.5 Seconds (11.1-14.7)
[2021-01-07 17:56] LABS: Partial Thromboplastin Time 30.9 SECONDS (22.3-36.8)
[2021-01-07 17:56] LABS: Add Urine Microscopic? YES; Appearance Urine Clear (Clear); Bacteria Urine Trace /hpf; Bilirubin Urine Negative (Negative); Blood Urine Negative (Negative); Color Urine Yellow (Yellow); Glucose Urine UA Negative (Negative); Hyaline Casts Urine 15-19 /lpf; Ketones Urine Trace mg/dL (Negative); Leukocyte Esterase Ur Negative LEU/UL (Negative); Mucus Urine Rare /lpf; Nitrate Urine Negative (Negative); Protein Urine 1+ mg/dL (Negative); RBC Urine 0-2 /hpf (0-2); Specific Grav Ur 1.017 (1.001-1.035); Squamous Epithelial Cell Urine Rare /hpf (Few); Urobilinogen Urine Negative mg/dL (<2.0); WBC Urine 0-3 /hpf
[2021-01-07 17:57] LABS: Troponin I < 0.012 ng/mL (0.000-0.034)
--- NOTE | 2021-01-07 18:34 | ED.GENADULT ---
HPI - General Adult General Chief complaint: Altered Mental Status Stated complaint: altered mental status Time Seen by Provider: 01/07/21 16:41 History of Present Illness HPI narrative: Patient is a 75-year-old gentleman who presents the emergency department with chief complaint of altered mental status. Patient was recently admitted to the hospital for pneumonia and since going home has been more confused than normal and has not been eating and drinking. Patient's states that now he has been talking out of his head and repeating things but not having any new focal weakness anywhere. They have not seen any fevers no vomiting or diarrhea. Has not had any shortness of breath or chest pain. Related Data Home Medications Medication Instructions Recorded Confirmed aspirin [Adult Low Dose Aspirin] 81 mg PO DAILY 10/24/19 12/29/20 polyethylene glycol 3350 [Miralax] 17 g PO PRN PRN 10/24/19 12/29/20 Xarelto 15 mg PO QPM 04/09/20 12/29/20 atorvastatin 40 mg PO QPM 04/09/20 12/29/20 metformin 500 mg PO BID 04/09/20 12/29/20 albuterol sulfate [Proventil HFA] 2 puff INHALATION PRN PRN 08/18/20 12/29/20 baclofen 5 mg PO PRN PRN 08/18/20 12/29/20 duloxetine 30 mg PO DAILY 08/18/20 12/29/20 nitroglycerin 0.4 mg SUBLINGUAL PRN PRN 08/18/20 12/29/20 tamsulosin 0.4 mg PO DAILY 08/18/20 12/29/20 isosorbide mononitrate 30 mg PO DAILY 09/24/20 12/29/20 prednisolone acetate 1 drp LEFT EYE TID 09/26/20 12/31/20 Allergies Allergy/AdvReac Type Severity Reaction Status Date / Time ibuprofen AdvReac Mild N/V Verified 12/29/20 16:10 Review of Systems Review of Systems: Narrative: A 10 system review of systems was completed on the patient and is negative except for what is stated in the HPI. Nursing and ancillary documentation was reviewed. [facility] Past Medical History Medical History Anemia Aortic stenosis Atrial fibrillation CAD (coronary artery disease) CKD (chronic kidney disease) stage 3, GFR 30-59 ml/min Dementia Diabetes mellitus Diabetic nephropathy Diabetic retinopathy History of CVA (cerebrovascular accident) HLD (hyperlipidemia) Hypertension Ischemia of left BKA site Osteoarthritis Pacemaker Peripheral vascular disease Phantom pain Surgical History Surgical History History of left below knee amputation Hx of appendectomy Hx of cardiac catheterization with stent placement Hx of cholecystectomy Hx of repair of right rotator cuff Hx of spinal surgery lumbar fusion Hx of tonsillectomy S/P CABG x 5 Family History Family History Mother Family history of thoracic aortic aneurysm Other Family history of arthritis Family history of coronary artery disease Social History Social History Social History: the patient is a DNR. 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 He lives with his . Patient is a lifelong nonsmoker. Although he did chew tobacco. Smoking status: Never smoker Tobacco type: smokeless tobacco Smokeless tobacco user: snuff Second hand tobacco smoke exposure: No Additional smoking assessment comments: chews tobacco daily x 39 years, current user Alcohol intake: never Substance use: never Substance use type: does not use Gender identity (if verbalized by the patient): Male Spiritual care concerns: No Agree to blood products: No Exam Narrative: Exam Narrative: GENERAL: Ill-appearing, well-nourished, and in no acute distress. Pale HEAD: Normocephalic, atraumatic. EYES: PERRLA and EOMI. ENT: Nares clear, no rhinorrhea or epistaxis. Mucous membranes moist. NECK: Supple. CHEST: Clear to auscultation. No respiratory distress. HEART: Regular rate and rhythm. No murmur heard. Normal periph
[2021-01-07 19:10] LABS: Ammonia < 9 umol/L (9-30)
[2021-01-07 20:27] LABS: Alveolar/Arterial O2 Gradient 21.7 mmHg; Base Excess ABG -5.1 mEq/l (+/-2.0); Fractional Inspired Oxygen 21 %; HCO3 ABG 20.4 mEq/l (22.0-26.0); Oxygen Content ABG 11.7 %vol (16.0-22.0); Oxygen Saturation ABG 95.3 % (95.0-100.0); Oxyhemoglobin 93.6 % THb (90.0-100.0); PCO2 ABG 39.4 mmHg (35.0-45.0); PO2 ABG 80.9 mmHg (80.0-100.0); PO2 FiO2 Ratio Arterial Blood 3.85 %; Total Hemoglobin 8.8 g/dL (12.0-18.0); pH ABG 7.332 (7.350-7.450)
[2021-01-07 20:28] LABS: Device ROOM AIR; Modified Allen's Test Pass; Site Drawn RIGHT RADIAL
[2021-01-07 20:31] LABS: Reflex Lactic Acid Yes or No Add Lactic
--- NOTE | 2021-01-07 21:15 | ADMGEN ---
This patient, Mani Coronel, was admitted to Medical Room 340-01. Patient/family oriented to hospital policies and general routines including ID bracelet, bed and alarms, visiting hours, pain management, procedures, bathroom and other care routines, personal items, smoking policy, room service/diet, and visiting hours. Information on how to activate the Rapid Response Team has been discussed. Patient/Family are encouraged to report perceived risks to care and to ask questions if they do not understand what they are told or what they should do.
[2021-01-07] MEDS: SODIUM CHLORIDE 0.9% IV 1,000 ML 125 ML IV CONT (21:21)
--- NOTE | 2021-01-07 21:30 | PM.IMHP ---
H&P: HPI History of Present Illness Date/Time: 01/07/21 21:30 Chief Complaint: Altered mental status. Narrative: This is a 75-year-old male with paroxysmal atrial fibrillation on long-term anticoagulation, coronary artery disease, chronic kidney disease, diabetes, hypertension, dementia, peripheral vascular disease, and several other comorbidities who presented to the emergency department earlier this evening for evaluation of altered mental status. He has only bad the hospital for about 5 days after several days admission in which he was admitted for altered mental status likely due to a combination of acute kidney injury related to dehydration as well as pneumonia. He was able to be discharged home on 01/02/2021 with home health, and it was a home health professional who told the patient's that he should be brought in today for evaluation. According to the , he ?has been talking out of his head? since discharge although it does not sound as though that is necessarily unusual for him given his progressive dementia. He has not been eating or drinking very well, however. In the emergency department he was not very cooperative and at times was inappropriate, requiring IV lorazepam. At the time my evaluation he is asleep, and only wakes to say few words before falling back asleep. He provides no meaningful history, complaints, and he does not really follow commands. Review of Systems Review of Systems: Narrative: A review of systems is unable to be obtained given his current clinical condition as detailed above. [facility] Past Medical History Medical History (Updated 01/08/21 @ 01:46 by Sherrell Vazquez PA-C) Aortic stenosis Atrial fibrillation With history of cardioversion. On long-term anticoagulation. Benign prostatic hyperplasia Chronic anemia Chronic back pain Chronic kidney disease, stage 3 Coronary artery disease Status post CABG in 2006. Patient of [address] Cesar Gonzalez. Dementia Diabetic nephropathy Diabetic retinopathy History of cerebrovascular accident History of left below knee amputation Hyperlipidemia Hypertension Insulin dependent type 2 diabetes mellitus Osteoarthritis Peripheral vascular disease Phantom pain Surgical History Surgical History (Updated 01/08/21 @ 01:39 by Sherrell Vazquez PA-C) History of ankle surgery ORIF left ankle fracture. History of appendectomy History of cardiac catheterization History of cholecystectomy (~04/2018) History of five vessel coronary artery bypass History of lumbar fusion History of pacemaker History of repair of right rotator cuff History of tonsillectomy Family History Family History Mother Family history of thoracic aortic aneurysm Other Family history of arthritis Family history of coronary artery disease Social History Social History (Updated 01/08/21 @ 01:41 by Sherrell Vazquez PA-C) Social History: The patient lives with his in [facility]. They have 3 children. 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 Lifelong nonsmoker however has chewed tobacco for almost 40 years. No alcohol or illicit substance abuse. His Roverto is his surrogate decision maker and he is listed as a do not resuscitate. Spiritual care concerns: No Agree to blood products: No Meds Home Medications and Allergies Home Medications Medication Instructions Recorded Confirmed Type aspirin [Adult Low Dose Aspirin] 81 mg PO DAILY 10/24/19 12/29/20 History polyethylene glycol 3350 [Miralax] 17 g PO PRN PRN 10/24/19 12/29/20 History donepezil [Aricept] 5 mg PO HS #0 tablet 11/07/19 12/29/20 Rx memantine [Namenda] 10 mg PO QAM #0 tablet 11/07/19 12/29/20 Rx pantoprazole [Protonix] 40 mg PO QAM #30 tablet 11/07/19 12/29/20 Rx pregabalin [Lyrica] 50 mg PO BID #60 cap 11/07/19 12/29/20 Rx Xarelto 15 mg PO QPM 04/09/20 12/29/20 History atorvastatin 40 mg PO QPM 04/09/20 12/29/20 History metformin 500 mg
[2021-01-08] VITALS (8 sets, daily range): BP systolic 168; BP diastolic 63; PULSE 60–67; RESP 16; TEMP 36.4; O2SAT 97–100
[2021-01-08 00:59] LABS: Glucose Point of Care 104 (65-105)
[2021-01-08 01:07] LABS: Lactic Acid 0.8 mmol/L (0.7-2.1)
[2021-01-08] MEDS: SODIUM CHLORIDE 0.9% IV 1,000 ML 80 ML IV CONT ×2 (05:28→18:45)
[2021-01-08 08:37] LABS: Hemoglobin 9.1 g/dL (14.0-18.0); Mean Corpuscular HGB Conc 32.5 g/dl (32-36); Mean Corpuscular Hemoglobin 29.3 pg (26-34); Mean Platelet Volume 10.8 fl (7.4-10.4); Platelet Count Result 353 k/mm3 (150-375); Red Blood Count 3.11 M/mm3 (4.6-6.20); Red Cell Distribution Width 13.3 % (11.5-14.5); White Blood Count 6.7 K/mm3 (4.5-10.0)
[2021-01-08 08:50] LABS: Hemoglobin A1C 8.2 % (<5.7)
[2021-01-08 08:56] LABS: Anion Gap 6 mmol/L (8-16); Blood Urea Nitrogen 26 mg/dL (9-20); Calcium 8.9 mg/dL (8.4-10.2); Carbon Dioxide 22 mmol/L (22-30); Chloride 114 mmol/L (98-107); Estimated CRCL calculation 34 ml/min; Estimated Glomerular Filt Rate 37; Glucose 101 mg/dL (75-110); Magnesium 1.2 mg/dL (1.6-2.3); Potassium 4.6 mmol/L (3.4-5.0); Sodium 142 mmol/L (137-145)
[2021-01-08 09:31] LABS: Thyroid Stimulating Hormone Reflex 0.812 uIU/mL (0.465-4.68)
[2021-01-08] MEDS: DULoxetine HCL 30 MG CAPSULE.DR PO (09:40)
[2021-01-08] MEDS: ASPIRIN 81 MG ENTERIC TABLET PO (09:40)
[2021-01-08] MEDS: MEMANTINE 10 MG TABLET PO (09:40)
[2021-01-08] MEDS: TAMSULOSIN HCL 0.4 MG CAPSULE PO (09:40)
[2021-01-08] MEDS: PANTOPRAZOLE 40 MG TABLET PO (09:40)
[2021-01-08] MEDS: ISOSORBIDE MONONITRATE 30 MG TAB.ER.24H PO (09:40)
[2021-01-08] MEDS: PREGABALIN (*CRX) 50 MG CAPSULE PO (09:43)
[2021-01-08 10:02] LABS: Glucose Point of Care 103 (65-105)
--- NOTE | 2021-01-08 11:20 | PM.IMPN ---
Progress Note: A&P Assessment and Plan (1) Metabolic encephalopathy: Code(s): G93.41 - Metabolic encephalopathy Status: Acute Assessment and Plan: Likely would due to worsening dimension and dehydration -CT of the brain showed no acute process, chest x-ray shows improvement in previous pneumonia, UA was negative, no signs of infection on exam -lactic acid elevated on admission 2.4 as well as NATALIA with an improving creatinine, likely due to dehydration -patient was just hospitalized for pneumonia and discharged 2/5 and discharge with the note reading alert and oriented x4 -Hopefully this gets better with fluids as it did last stay -ammonia, b12 and TSH normal. Anion gap 6 -blood cultures are pending, white blood cell count is normal, no signs of fever -depending on what the decides, may consider MRI if his mental status is not better by tomorrow to check for stroke although I think this is less likely -no infection suspected at this time, await blood cultures (2) Dehydration: Code(s): E86.0 - Dehydration Status: Acute Assessment and Plan: Continue IV fluids -as stated above (3) Acute kidney injury superimposed on chronic kidney disease: Code(s): N17.9 - Acute kidney failure, unspecified; N18.9 - Chronic kidney disease, unspecified Status: Acute Assessment and Plan: Creatinine much improved down from 2.5 now 1.8 today with IV fluids -no infection suspected -continue IV fluids and monitoring (4) Chronic anemia: Code(s): D64.9 - Anemia, unspecified Status: Inactive Assessment and Plan: Hemoglobin 9.1 which is about his baseline -no signs and symptoms of blood loss -continue to monitor (5) Dementia: Code(s): F03.90 - Unspecified dementia without behavioral disturbance Status: Acute Assessment and Plan: Chronic, continue Namenda and Aricept (6) Hypertension: Code(s): I10 - Essential (primary) hypertension Status: Chronic Assessment and Plan: Last blood pressure 152/83 -trends show he usually runs normal -will watch his blood pressure pattern and may want to start oral therapy depending on the 's wishes and clinical course at discharge (7) Insulin dependent type 2 diabetes mellitus: Code(s): E11.9 - Type 2 diabetes mellitus without complications; Z79.4 - USP (current) use of insulin Status: Inactive Assessment and Plan: Last glucose 103 -continue metformin -due to his advanced dementia and sporadic eating, would not recommend any changes -continue sliding scale insulin as needed (8) Benign prostatic hyperplasia: Code(s): N40.0 - Benign prostatic hyperplasia without lower urinary tract symptoms Status: Acute Assessment and Plan: Continue Flomax (9) Hypomagnesemia: Code(s): E83.42 - Hypomagnesemia Status: Acute Assessment and Plan: Will give IV mag today and start oral tomorrow Time Spent With Patient Time with patient: 25 - 35 minutes Subjective Date/time seen: 01/08/21 11:20 Interval history: Pt is a 75-year-old male. Patient was pleasantly confused at the bedside and could not even tell me his name. He was singing songs and kept saying my ass is gone while laughing with any questions including orientation questions. The family is going to be here at 12 and meet with hospice/palliative care later today. No new events overnight per the nurse. Apparently he was combative overnight but today has been peaceful and active. Review of Systems Review of Systems: All systems reviewed & are unremarkable except as noted in HPI and below Exam Narrative: Exam Narrative: General: Well developed well nourished patient in NAD HEENT: normocephalic Neck: supple Neuro: Alert but not oriented whatsoever and could not even tell me his name and kept singing songs. CV:RRR with a loud systolic murmu
[2021-01-08] MEDS: LORazepam INJ (*CRX) 2 MG/ML VIAL 0.5 MG IV PUSH ×2 (15:04→21:58)
[2021-01-08] MEDS: MAGNESIUM SULF 2 GM/WATER 50ML 2 GM/50 ML BAG IVPB (15:04)
--- NOTE | 2021-01-08 17:29 | PC.NURSE ---
Pt not willing to take medication. Family and hospitalist aware.
[2021-01-08 20:20] LABS: Glucose Point of Care 99 (65-105)
[2021-01-08 23:22] LABS: Glucose Point of Care 96 (65-105)
[2021-01-09] VITALS: PULSE 61
[2021-01-09 04:00] VITALS: PULSE 68
[2021-01-09] MEDS: LORazepam INJ (*CRX) 2 MG/ML VIAL 0.5 MG IV PUSH (05:46)
[2021-01-09 06:00] VITALS: BP 165/89; PULSE 62; RESP 18; TEMP 36.1; O2SAT 97
[2021-01-09 06:26] LABS: Hematocrit 30.6 % (42.0-52.0); Hemoglobin 10.2 g/dL (14.0-18.0); Mean Corpuscular HGB Conc 33.3 g/dl (32-36); Mean Corpuscular Hemoglobin 29.6 pg (26-34); Mean Corpuscular Volume 88.7 fl (80-100); Mean Platelet Volume 10.8 fl (7.4-10.4); Platelet Count Result 375 k/mm3 (150-375); Red Blood Count 3.45 M/mm3 (4.6-6.20); Red Cell Distribution Width 13.2 % (11.5-14.5); White Blood Count 6.1 K/mm3 (4.5-10.0)
[2021-01-09 06:36] LABS: Anion Gap 7 mmol/L (8-16); Blood Urea Nitrogen 17 mg/dL (9-20); CRP 2.8 mg/dL (<1.0); Calcium 9.2 mg/dL (8.4-10.2); Carbon Dioxide 25 mmol/L (22-30); Chloride 108 mmol/L (98-107); Estimated CRCL calculation 46 ml/min; Estimated Glomerular Filt Rate 54; Glucose 92 mg/dL (75-110); Magnesium 1.3 mg/dL (1.6-2.3); Phosphorus 2.7 mg/dL (2.5-4.5); Potassium 4.8 mmol/L (3.4-5.0); Sodium 140 mmol/L (137-145)
[2021-01-09] MEDS: SODIUM CHLORIDE 0.9% IV 1,000 ML 80 ML IV CONT (06:38)
[2021-01-09 08:00] VITALS: PULSE 62
--- NOTE | 2021-01-09 08:36 | PC.NURSE ---
Pt confused and combative. Unable to give patient his medication this morning.
[2021-01-09] MEDS: DEXTROSE 5% 1,000 ML 1,000 ML 80 ML IVPB (08:47)
--- NOTE | 2021-01-09 09:09 | PM.DS ---
DS: Admitting Diagnosis Admitting Diagnosis Admitting Diagnosis: Acute dehydration, acute on chronic kidney injury, acute delirium DS: Discharge Diagnosis Discharge Diagnosis (1) Metabolic encephalopathy: Code(s): G93.41 - Metabolic encephalopathy Status: Acute Assessment and Plan: Likely would due to worsening dementia and dehydration. Family wished to proceed with Hospice care; awaiting equipment delivery to house. CT of the brain showed no acute process, chest x-ray shows improvement in previous pneumonia, UA was negative, no signs of infection on exam. Lactic acid elevated on admission 2.4 as well as NATALIA with an improving creatinine again today, likely due to dehydration. Patient was just hospitalized for pneumonia and discharged / and discharge with the note reading alert and oriented x4. Ammonia, b12 and TSH normal. Blood cultures showing NGTD x 2. White blood cell count is normal, no signs of fever Likely discharge today with hospice Further care per hospice agency (2) Dehydration: Code(s): E86.0 - Dehydration Status: Acute Assessment and Plan: Continue IV fluids until discharge Please see above a/p (3) Acute kidney injury superimposed on chronic kidney disease: Code(s): N17.9 - Acute kidney failure, unspecified; N18.9 - Chronic kidney disease, unspecified Status: Acute Assessment and Plan: Creatinine much improved down from 2.5 now 1.3 today with IV fluids (4) Chronic anemia: Code(s): D64.9 - Anemia, unspecified Status: Inactive Assessment and Plan: Hemoglobin 10.2 which is about his baseline. no signs and symptoms of blood loss (5) Dementia: Code(s): F03.90 - Unspecified dementia without behavioral disturbance Status: Acute Assessment and Plan: Chronic, continue Namenda and Aricept (6) Hypertension: Code(s): I10 - Essential (primary) hypertension Status: Chronic Assessment and Plan: Last blood pressure 160s sys most recently. Patient refusing medications Defer further care per hospice service (7) Insulin dependent type 2 diabetes mellitus: Code(s): E11.9 - Type 2 diabetes mellitus without complications; Z79.4 - half-way (current) use of insulin Status: Inactive Assessment and Plan: Last glucose 72. Patient refusing food/drink at this time Encourage PO intake Further care per hospice service (8) Benign prostatic hyperplasia: Code(s): N40.0 - Benign prostatic hyperplasia without lower urinary tract symptoms Status: Acute Assessment and Plan: Continue Flomax. Further management per hospice service (9) Hypomagnesemia: Code(s): E83.42 - Hypomagnesemia Status: Acute Assessment and Plan: 1.3 today. Started on mag ox, but patient refusing Defer further care per hospice service DS: Summary Hospital Course Reason for hospitalization: Acute delirium, dehydration, acute on chronic kidney injury Hospital Course: Date of arrival: 01/07/21 Date of discharge: 01/09/21 Patient is a 75-year-old male with paroxysmal atrial fibrillation on long-term anticoagulation, coronary artery disease, chronic kidney disease, diabetes, hypertension, dementia, peripheral vascular disease, and several other comorbidities who presented to the emergency department on 01/07 for evaluation of altered mental status. While in the ED, patient was found to have dehydration and acute on chronic kidney injury. He was given IV fluids. Patient admitted under setting of dehydration and acute delirium in set
[2021-01-09 09:13] LABS: Glucose Point of Care 72 (65-105)
[2021-01-09 15:30] LABS: Glucose Point of Care 120 (65-105)
[2021-01-09 19:28] VITALS: BP 105/51; PULSE 78; RESP 12; TEMP 36.8; O2SAT 98
[2021-01-09 19:30] LABS: Glucose Point of Care 119 (65-105)
--- NOTE | 2021-01-09 20:50 | PC.NURSE ---
Called [facility] to let them know that patient had been discharged.
== END 2021-01-09 20:50 | disposition hospice, home (50) ==
LOC: ANHED 20:07 → ANH3MED 20:49
PROVIDERS: Physician Assistant; Admitting Provider Family Medicine; Emergency Provider Emergency Medicine; PCP Family Medicine; Visit Provider Physician Assistant
DX: G93.41 Metabolic encephalopathy (principal); E86.0 Dehydration; N17.9 Acute kidney failure, unspecified; D64.9 Anemia, unspecified; F03.90 Unspecified dementia, unspecified severity, without behavioral disturbance, psychotic disturbance, mood disturbance, and anxiety; I12.9 Hypertensive chronic kidney disease with stage 1 through stage 4 chronic kidney disease, or unspecified chronic kidney disease; E11.319 Type 2 diabetes mellitus with unspecified diabetic retinopathy without macular edema; N40.0 Benign prostatic hyperplasia without lower urinary tract symptoms; E83.42 Hypomagnesemia; R41.82 Altered mental status, unspecified; Z79.82 Long term (current) use of aspirin; Z79.899 Other long term (current) drug therapy; I35.0 Nonrheumatic aortic (valve) stenosis; I48.91 Unspecified atrial fibrillation; E11.22 Type 2 diabetes mellitus with diabetic chronic kidney disease; N18.30 Chronic kidney disease, stage 3 unspecified; E11.21 Type 2 diabetes mellitus with diabetic nephropathy; E11.51 Type 2 diabetes mellitus with diabetic peripheral angiopathy without gangrene; Z86.73 Personal history of transient ischemic attack (TIA), and cerebral infarction without residual deficits; E78.5 Hyperlipidemia, unspecified; Z95.0 Presence of cardiac pacemaker; Z89.512 Acquired absence of left leg below knee; F17.220 Nicotine dependence, chewing tobacco, uncomplicated; R91.8 Other nonspecific abnormal finding of lung field; Z79.4 Long term (current) use of insulin; Z79.01 Long term (current) use of anticoagulants; Z79.84 Long term (current) use of oral hypoglycemic drugs; Z95.5 Presence of coronary angioplasty implant and graft; Z98.1 Arthrodesis status; Z95.1 Presence of aortocoronary bypass graft
CPT/HCPCS: 11720; 36415; 36600; 70450; 71045; 80048; 80053; 81001; 82140; 82607; 82805; 82948; 83036; 83605; 83735; 84100; 84443; 84484; 85025; 85027; 85610; 85730; 86140; 87040; 93005; 96361; 96365; 96375; 96376; 99285; A9270; G0378; J2060; J3475; J7030; J7070